=== PATIENT | male | born 1975 | race Two or more races ===

== ENCOUNTER 2024-11-09 15:49 | Emergency (ER) | payer OTHER, SELFPAY ==
--- NOTE | ~2024-11-09 | CT_ITS ---
CLINICAL HISTORY: Right-sided pain etiology?? CT abdomen and pelvis without contrast Comparison: None provided Findings: No consolidation or effusion. The unenhanced liver, gallbladder, spleen, adrenal glands and pancreas are unremarkable. Kidneys, ureters and bladder are normal. Normal appendix. No bowel obstruction or free air. Mild diverticulosis. No acute osseous finding. Impression: No acute process. Diverticulosis without evidence of diverticulitis. Normal appendix. This document has been electronically signed by: Flako Aguilar MD on 11/09/2024 22:40:24
[2024-11-09 15:53] VITALS: BP 164/80; PULSE 56; RESP 18; TEMP 36.6; O2SAT 98; BMI 31.3
--- NOTE | 2024-11-09 15:56 | ED.GENADULT ---
HPI - General Adult General Chief complaint: Abdominal Pain Stated complaint: R sided abdominal pain Time Seen by Provider: 11/09/24 20:09 Source: patient Mode of arrival: ambulatory Limitations: no limitations History of Present Illness ED Provider: HPI narrative: Patient complaining of right lower abdominal pain for last 2 weeks went to [facility] 2 weeks ago was told that has a UTI was given antibiotics no history of kidney stone no fever no chills patient does not have any urinary discomfort at this time but having the pain right lower abdominal concerning no relation with food been does get worse on ambulation Related Data Previous Rx's ?Medication ?Instructions ?Recorded dicyclomine 20 mg tablet 20 mg PO TID PRN abdominal pain 11/09/24 #20 tabs Allergies Allergy/AdvReac Type Severity Reaction Status Date / Time No Known Allergies Allergy Verified 11/09/24 15:55 Review of Systems Review of Systems: Yes all other systems are reviewed and are negative [facility] Social History Social History Advance Directives: No Advance Directives Information Provided: No Do you have a plan to hurt others: No Plan Physical Exam ED Vital Signs: Vital Signs - 24 hr 11/09/24 15:53 11/09/24 22:35 Temperature 97.8 F 98.1 F Pulse Rate 56 48 L Respiratory Rate 18 20 Blood Pressure 164/80 H 151/83 H Pulse Oximetry 98 100 Oxygen Delivery Method Room Air Room Air BMI result Body Mass Index 31.3 Appearance: Alert. Oriented X3. No acute distress. Eyes: No pallor or icterus ENT: Pharynx normal. Oral Mucosa moist Neck: Normal inspection. Neck supple. CVS: Normal heart rate and rhythm. Pulses normal. Respiratory: No respiratory distress. Equal air entry bilateral, no wheezing/rales/rhonchi Abdomen: Soft and deep tenderness right lower abdomen no rebound tenderness or guarding. Bowel sounds are present, no mass palpable, no CVA tenderness Skin: Skin warm and dry. Normal skin color. Normal skin turgor. Extremities: No lower extremity edema. No calf tenderness Neuro: Oriented X 3. No motor deficit. No sensory deficit.No cerebellar signs , cranial nerves II-XII intact Course Course Course Narrative: This is an RME performed by Lizeth Ramirez CNP: Additional HPI, ROS, PE not included below will be deferred to primary provider. Patient is a 49-year-old male who presents emergency department for evaluation. He reports that he was seen at [facility] 2 weeks ago given a 10 day antibiotic course for urinary tract infection. Reports that he continues having right lower quadrant abdominal pain without specific genitourinary symptoms which is what originally brought him to their hospital. He states that he did have a CT scan done there was no kidney stones and was told that his appendix is normal. He denies any fevers, chills, nausea, vomiting Plan: Serum labs, urinalysis Medications Administered Discontinued Medications Generic Name Dose Route Start Last Admin Trade Name Freq PRN Reason Stop Dose Admin Dicyclomine HCl 20 mg 11/09/24 22:47 11/09/24 22:59 Dicyclomine Hcl 10 Mg Capsule PO 11/09/24 22:48 20 mg ONCE ONE Administration Medical Decision Making Medical Decision Making [facility] Narrative: Patient with nonspecific right lower abdominal pain CT scan negative for appendicitis labs are stable advised patient take dicyclomine for discomfort Differential Diagnosis Differential Diagnoses: The differential diagnosis associated with the presentation includes Appendicitis/kidney stone/UTI/cystitis /diverticulitis Lab Data [facility] Lab Attestation statement: I reviewed the patient's lab results. 11/09/24 16:36 11/09/24 16:36 Labs: Lab Results 11/09/24 Range/Units 16:36 WBC 5.8 (4.8-10.8) X10*3/uL RBC 4.24 L (4.60-5.80) X10*6/uL Hgb 12.5 L (14.0-18.0) g/dl Hct 37.1 L (42.0-52.0) % MCV 87.5 (80.0-98.0) fL MCH 29.5 (27.0-33.0) pg MCHC 33.7 (31.0-36.0) g/dl RDW 12.7 (11.0-16.0) % Plt Count 164 (160-400) X10*3/uL MPV 10.4 (9.4-12.4) fL Immature Gran % (Auto) 0.2 (0.0-0.4) % Neut % (Auto) 54.5 (45-73) % Lymph % (Auto) 35.8 (20-40) % [place] % (Auto) 7.3 (2-11) % Eos % (Auto) 1.7 (0-4) % Baso % (Auto) 0.5 (0-2) % Lymph # (Auto) 2.1 (1.2-4.9) X10*3/uL [place] # (Auto) 0.4 (0.1-1.2) X10*3/uL Eos # (Auto) 0.1 (0.0-0.4) X10*3/uL Baso # (Auto) 0.0 (0.0-0.2) X10*3/uL Abs Immat Gran (auto) 0.01 (0.00-0.03) X10*3/uL Absolute Neuts (auto) 3.2 (2.0-8.3) x10*3/uL Absolute Nucleated RBC 0.000 (0.0-0.012) X10*3/uL Nucleated RBC % (auto) 0.0 (0.0-0.2) /100WBC Sodium 144 (135-145) mmol/L Potassium 4.1 (3.3-5.1) mmol/L Chloride 112 H (96-108) mmol/L Carbon Dioxide 24 (22-29) mmol/L Anion Gap 12 (12-20) BUN 17 H (9-16) mg/dL Creatinine 0.87 (0.5-1.4) mg/dL Estim Creat Clear Calc 107.9 Estimated GFR > 60 Random Glucose 92 (60-115) mg/dL Calcium 9.9 (8.4-10.2) mg/dL Total Bilirubin 0.4 (0.0-1.0) mg/dL AST 104 H (5-37) U/L ALT 82 H (0-40) U/L Alkaline Phosphatase 58 (39-117) U/L Total Protein 6.7 (6.5-8.0) g/dL Albumin 4.4 (3.5-5.0) g/dL Urine Color Yellow Urine Appearance Clear Urine pH 5.5 (5.0-9.0) Ur Specific [place] 1.025 (1.005-1.025) Urine Protein Negative (Neg-Trace) mg/dL Urine Glucose (UA) Negative (Negative) mg/dL Urine Ketones Trace (Negative) mg/dL Urine Blood Negative (Negative) Urine Nitrite Negative (Negative) Ur Leukocyte Esterase Negative (Negative) Radiology Impression Discussion of test interpretation with radiology: I have reviewed the radiologist's reading. Discharge Plan Discharge Clinical Impression: Diverticulosis Patient Disposition: Home, Self-Care Instructions: Diverticulosis (ED) Additional Instructions: Drink plenty of fluids Have liquids advance as tolerated Dicyclomine for pain Follow with the PCP if not better Your CT scan is negative for acute pathology except diverticulosis without infection Prescriptions: New dicyclomine 20 mg tablet 20 mg PO TID PRN (Reason: abdominal pain) Qty: 20 0RF Stand Alone Forms: Work/School Release Print Language: Azerbaijani
[2024-11-09 16:43] LABS: MANUAL DIFF FLAG NO
[2024-11-09 16:46] LABS: Appearance Urine Clear; Glucose Urine UA Negative (Negative); Hematocrit 37.1 % (42.0-52.0); Hemoglobin 12.5 g/dl (14.0-18.0); Imm Gran Abs Auto 0.01 X10*3/uL (0.00-0.03); Imm Gran Pct Auto 0.2 % (0.0-0.4); Lymphocytes Absolute Auto 2.1 X10*3/uL (1.2-4.9); Mean Corpuscular HGB Conc 33.7 g/dl (31.0-36.0); Mean Corpuscular Hemoglobin 29.5 pg (27.0-33.0); Mean Corpuscular Volume 87.5 fL (80.0-98.0); NRBC Abs Auto 0.000 X10*3/uL (0.0-0.012); NRBC Pct Auto 0.0 /100WBC (0.0-0.2); PH 5.5 (5.0-9.0); Platelet Count 164 X10*3/uL (160-400); Red Blood Count 4.24 X10*6/uL (4.60-5.80); Specific Gravity - Urine 1.025 (1.005-1.025); White Blood Count 5.8 X10*3/uL (4.8-10.8)
[2024-11-09 17:00] LABS: Alanine Aminotransferase 82 U/L (0-40); Albumin Level 4.4 g/dL (3.5-5.0); Alkaline Phosphatase 58 U/L (39-117); Anion Gap 12 (12-20); Aspartate Amino Transferase 104 U/L (5-37); Blood Urea Nitrogen 17 mg/dL (9-16); Calcium 9.9 mg/dL (8.4-10.2); Carbon Dioxide 24 mmol/L (22-29); Chloride 112 mmol/L (96-108); Creatinine Clr Calc Pharmacy 107.9; Estimated Glomerular Filt Rate > 60; Potassium 4.1 mmol/L (3.3-5.1); Sodium 144 mmol/L (135-145); Total Protein 6.7 g/dL (6.5-8.0)
[2024-11-09 22:35] VITALS: BP 151/83; PULSE 48; RESP 20; TEMP 36.7; O2SAT 100
== END 2024-11-09 23:45 | disposition home or self-care (01) ==
PROVIDERS: Nurse Practitioner Family; Emergency Provider Internal Medicine
DX: K57.30 Diverticulosis of large intestine without perforation or abscess without bleeding (principal); R10.31 Right lower quadrant pain
CPT/HCPCS: 36415; 74176; 80053; 81003; 85025; 99283; 99284

== ENCOUNTER → 2024-11-09 20:59 | Outpatient (BNV) | payer MEDICAID, SELFPAY | PROVIDERS: Emergency Provider Internal Medicine; Visit Provider Radiology Vascular & Interventional Radiology | DX: K57.30 Diverticulosis of large intestine without perforation or abscess without bleeding (principal) | CPT/HCPCS: 74176 ==

== ENCOUNTER 2024-11-26 12:03 | Outpatient (REF) | payer OTHER, SELFPAY ==
--- NOTE | ~2024-11-26 | XR_ITS ---
EXAMINATION: XR LUMBOSACRAL SPINE CLINICAL INFORMATION: pain COMPARISON: Correlated to CT abdomen pelvis dated November 09, 2024. TECHNIQUE: AP and lateral views FINDINGS: Anterior marginal osteophyte formation throughout the lower thoracic spine L4-5 and 7 levels. No acute cortical disruption or gross malalignment. Facet joint hypertrophy at L5-S1. No lytic or blastic lesions. Calcification versus barium opacity in the lower pelvis. XR/XR lumbar spine 2-3V IMPRESSION: Multilevel thoracolumbar spondylosis pronounced at L4-5 and L5-S1. Electronically signed by: Ronald Cid MD 11/26/2024 12:42 PM EDT
== END 2024-11-26 12:04 | disposition home or self-care (01) ==
LOC: HO.HHCX 12:03
PROVIDERS: PCP Internal Medicine; Visit Provider Internal Medicine
DX: M54.50 Low back pain, unspecified (principal)
CPT/HCPCS: 72100

== ENCOUNTER → 2024-11-26 12:17 | Outpatient (BNV) | payer OTHER, SELFPAY | PROVIDERS: PCP Internal Medicine; Visit Provider Radiology Diagnostic Radiology | DX: M47.817 Spondylosis without myelopathy or radiculopathy, lumbosacral region (principal) | CPT/HCPCS: 72100 ==

== ENCOUNTER 2024-12-24 08:54 | Outpatient (REF) | payer MEDICAID, SELFPAY ==
--- OUTSIDE RECORDS SUMMARY | 2024-12-24 09:44 | XMS_ITS | Encounter Summary ---
Author Organization [employer] Address [address] [place] [address] Care Team Providers Care Senior Bioinformatics Scientist Name Role Phone Unavailable Primary Care Provider Unavailabl e Encounter Details Date Type Department Care Team (Late st Contact Info) Description 11/27/2024 Orders Only [facility] [address] [place] [phone] Christina Jackson MD [address] [place] [phone] Social History Tobacco Use Types Packs/Day Years Used Date Smoking Tobacco: Never Assessed Sex and Gender Information Value Date Recorded Sex Assigned at Male 11/23/2024 3:57 PM EDT Legal Sex Male 1:25 PM EDT Gender Identity Male 11/23/2024 3:57 PM EDT Sexual Orientation Straight 11/23/2024 3: 57 PM EDT documented as of this encounter Plan of Treatment Upcoming Encounters Date Type Department Care Team (Late st Contact Info) Description 12/31/2024 2:30 PM EDT Office Visit [facility] [address] [place] [phone] Roddy Cornejo MD [address] [place] [phone] 01/18/2025 10:15 AM EDT Office Visit [facility] [address] [place] [phone] Christina Jackson MD [address] [place] [phone] documented as of this encounter Visit Diagnoses Not on filedocumented in this encounter
--- OUTSIDE RECORDS SUMMARY | 2024-12-24 09:44 | XMS_ITS | Clinical Summary ---
Author Organization [facility] Address [address] [place] [address] Phone Care Team Providers Care Family Resource Management Specialist Name Role Phone Christina Jackson MD Primary Care Provide r Allergies No known active allergies Medications methocarbamoL (ROBAXIN) 500 mg tablet Take 2 tablets (1,000 mg total) by mouth 2 (two) times a day if needed for muscle spasms for up to 14 days. 28 tablet 5 Active Lactobacillus acidophilus 100 mg (1 billion cell) capsule Take 1 capsule by mouth 2 (two) times a day. 60 each 5 11/28/19 25 Encounters Date Type Department Care Team Description 11/27/2024 10:03 AM EDT - 11/27/2024 11:59 PM EDT Hospital Encounter [facility] Ultrasound [address] [place] [phone] Right inguinal hernia Discharge Disposition: Home or Self Care 11/19/2024 10:11 AM EDT - 11/19/2024 1:09 PM EDT Emergency [facility] Emergency [address] [place] [phone] Milagros Douglas MD Strain of right groin (Primary Dx) Discharge Disposition: Home or Self Care 10/28/2024 8:10 PM EDT - 10/29/2024 12:05 AM EDT Emergency [facility] Emergency [address] [place] [phone] Rusty Smalls MD Transaminitis (Primary Dx); Right lower quadrant abdominal pain; Cystitis Discharge Disposition: Home or Self Care from Last 3 Months Social History Tobacco Use Types Packs/Day Years Used Date Smoking Tobacco: Never Smokeless Tobacco: Never Tobacco Cessation:Counseling Given: Not Answered Alcohol Use Standard Drinks/Week Comments Yes 2 (1 standard drink = 0.6 oz pur e alcohol) Sex and Gender Information Value Date Recorded Sex Assigned at Male 11/25/2024 9:11 AM EDT Legal Sex Male 5:42 PM EDT Gender Identity Male 11/25/2024 9:11 AM EDT Sexual Orientation Straight 11/25/2024 9: 11 AM EDT Obstetrics History Last Filed Vital Signs Vital Sign Reading Time Taken Comments Blood Pressure 120/83 11/19/2024 10:10 AM EDT Pulse 64 10/28/2024 5:47 PM EDT Temperature 36.6 C (97.8 F) 11/19/2024 10:10 AM EDT Respiratory Rate 18 11/19/2024 10:10 AM EDT Oxygen Saturation 100% 11/19/2024 10:10 AM EDT Inhaled Oxygen Concentration - - Weight 90.7 kg (200 lb) 11/19/2024 10:05 AM EDT Height 173.7 cm (5' 8.4 ) 11/19/2024 10:05 AM ED T Body Mass Index 30.06 11/19/2024 10:05 AM EDT Plan of Treatment Health Maintenance Due Date Last Done Comments DTaP,Tdap,and Td Vaccines (1 - Tdap) 01/21/1992 Hepatitis B Vaccines (1 of 3 - 19+ 3-dose series) 01/21/1992 Pneumococcal Vaccine: 50+ Ye ars (1 of 1 - PCV) 2023 Zoster Vaccines (1 of 2) 2023 Depression Screening 04/14/2024 Cholesterol Screening (Lipid Panel) 10/29/2024 Colorectal Cancer Screening: Colonoscopy 10/29/2024 HIV Screening 10/29/2024 Hepatitis C Screening 10/29/2024 Social Influencers of Health Screening 10/29/2024 COVID-19 Vaccine ( - 2023-2 5 season) 2024 Influenza Vaccine (#1) 2024 HIB Vaccines Aged Out No longer eligi ble based on patient's age to complete this topic HPV Vaccines Aged Out No longer eligi ble based on patient's age to complete this topic Hepatitis A Vaccines Aged Out No long er eligible based on patient's age to complete this topic IPV Vaccines Aged Out No longer eligi ble based on patient's age to complete this topic MMR Vaccines Aged Out No longer eligi ble based on patient's age to complete this topic Meningococcal ACWY Vaccine Aged Out N o longer eligible based on patient's age to complete this topic Meningococcal B Vaccine Aged Out No l onger eligible based on patient's age to complete this topic RSV Immunization Patients Un guerrero 20 months Aged Out No longer eligible b ased on patient's age to complete this topic Varicella Vaccines Aged Out No longer eligible based on patient's age to complete this topic Procedures Procedure Name Priority Date/Time Associated Diagnosis Comments US PELVIS NON OB COMPLETE Routine 11/27/2024 10:44 AM EDT Right inguinal hernia US SCROTUM AND CONTENTS STAT 11/19/2024 11:39 AM EDT URINALYSIS WITH REFLEX MICROSCOPIC STAT 11/19/2024 10:57 AM EDT URINALYSIS WITH REFLEX MICROSCOPIC STAT 11/19/2024 10:[address] ABDOMEN PELVIS W CONTRAST STAT 10/28/2024 9:42 PM EDT CBC WITH AUTO DIFFERENTIAL STAT 10/28/2024 6:26 PM EDT LIPASE STAT 10/28/2024 6:26 PM EDT COMPREHENSIVE METABOLIC PANEL STAT 10/28/2024 6:26 PM EDT CBC AND DIFFERENTIAL STAT 10/28/2024 6:26 PM EDT from Last 3 Months Results * US Pelvis Non OB Complete (11/27/2024 10:44 AM EDT) Anatomical Region Laterality Modality Body, Pelvis Ultrasound 11/29/2024 10:1 7 AM EDT Impressions 11/29/2024 10:19 AM EDT Impression: 1. No evidence of a right inguinal hernia is seen. 2. Mild right inguinal lymphadenopathy, possibly reactive hyperplasia. Teleshaji FOSTER ([id number]) -------- FINAL REPORT -------- Dictated By: Gabriella Vidal Dictated Date: 11/29/2024 10:17 ET Assigned Physician: Gabriella Vidal Reviewed and Electronically Signed By: Gabriella Vidal Signed Date: 11/29/2024 10:19 ET Workstation ID: [id number] Transcribed By: Self Edit Transcribed Date: 11/29/2024 10:17 ET Narrative 11/29/2024 10:19 AM EDT History: 49-year-old male with right inguinal pain for one month. Question inguinal hernia. Comparison: Scrotal ultrasound 11/19/24, CT abdomen/pelvis 10/28/24 Findings: High resolution real-time imaging of the right inguinal area was performed, without and with Valsalva maneuver. No inguinal hernia is seen. There are several mildly enlarged but morphologically normal right inguinal lymph nodes, also visible on the recent CT, the largest 23 mm long axis. Procedure Note Gabriella Vidal MD - 11/29/2024 History: 49-year-old male with right inguinal pain for one month. Questioninguinal hernia. Comparison: Scrotal ultrasound 11/19/24, CT abdomen/pelvis 10/28/24 Findings: High resolution real-time imaging of the right inguinal area wasperformed, without and with Valsalva maneuver. No inguinal hernia is seen.There are several mildly enlarged but morphologically normal rightinguinal lymph nodes, also visible on the recent CT, the largest 23 mmlong axis. IMPRESSION: Impression: 1. No evidence of a right inguinal hernia is seen. 2. Mild right inguinal lymphadenopathy, possibly reactive hyperplasia. Teleshaji FOSTER ([id number]) -------- FINAL REPORT -------- Dictated By: Gabriella iVdal Dictated Date: 11/29/2024 10:17 ET Assigned Physician: Gabriella Vidal Reviewed and Electronically Signed By: Gabriella Vidal Signed Date: 11/29/2024 10:19 ET Workstation ID: [id number] Transcribed By: Self Edit Transcribed Date: 11/29/2024 10:17 ET us Christina Mendez MD IMG US PROCEDURES Fin al Result * US Scrotum and Contents (11/19/2024 11:39 AM EDT) Anatomical Region Laterality Modality Body Ultrasound 11/19/2024 12:1 4 PM EDT Impressions 11/19/2024 12:16 PM EDT No focal abnormality within the testicle on either side. No etiology for right scrotal pain demonstrated. -------- FINAL REPORT -------- Dictated By: Omar Orozco Dictated Date: 11/19/2024 12:14 ET Assigned Physician: Omar Orozco Reviewed and Electronically Signed By: Omar Orozco Signed Date: 11/19/2024 12:16 ET Workstation ID: [id number] Transcribed By: Self Edit Transcribed Date: 11/19/2024 12:14 ET Narrative 11/19/2024 12:16 PM EDT EXAM: SCROTAL ULTRASOUND HISTORY: Right scrotal pain. Symptoms for one month. TECHNIQUE: Real-time grayscale evaluation of the scrotum. Color mapping of each testicle. Doppler spectral assessment of each testicle. COMPARISON: None FINDINGS: QUALITY: Adequate RIGHT TESTICLE: No focal abnormality of the testicle. Contour is smooth. Echotexture is homogeneous. Size: 4.7 x 2.2 x 3.0 cm Right vascularity: Normal Right echogenicity: Homogeneous Right extratesticular: No suspicious abnormality. The epididymis is not enlarged. There is no peristalsing bowel Right scrotal fluid: No significant scrotal fluid LEFT TESTICLE: No focal abnormality of the testicle. Contour is smooth. Echotexture is homogeneous. Size: 4.7 x 2.2 x 3.1 cm Left vascularity: Normal Left echogenicity: Homogeneous Left extratesticular: No suspicious abnormality. The epididymis is not enlarged. There is no peristalsing bowel Left scrotal fluid: No significant scrotal fluid ADDITIONAL: None Procedure Note Omar Orozco MD - 11/19/2024 EXAM: SCROTAL ULTRASOUND HISTORY: Right scrotal pain. Symptoms for one month. TECHNIQUE: Real-time grayscale evaluation of the scrotum. Color mapping ofeach testicle. Doppler spectral assessment of each testicle. COMPARISON: None FINDINGS: QUALITY: Adequate RIGHT TESTICLE: No focal abnormality of the testicle. Contour is smooth.Echotexture is homogeneous. Size: 4.7 x 2.2 x 3.0 cm Right vascularity: Normal Right echogenicity: Homogeneous Right extratesticular: No suspicious abnormality. The epididymis is notenlarged. There is no peristalsing bowel Right scrotal fluid: No significant scrotal fluid LEFT TESTICLE: No focal abnormality of the testicle. Contour is smooth.Echotexture is homogeneous. Size: 4.7 x 2.2 x 3.1 cm Left vascularity: Normal Left echogenicity: Homogeneous Left extratesticular: No suspicious abnormality. The epididymis is notenlarged. There is no peristalsing bowel Left scrotal fluid: No significant scrotal fluid ADDITIONAL: None IMPRESSION: No focal abnormality within the testicle on either side. No etiology for right scrotal pain demonstrated. -------- FINAL REPORT -------- Dictated By: Omar Orozco Dictated Date: 11/19/2024 12:14 ET Assigned Physician: Omar Orozco Reviewed and Electronically Signed By: Omar Orozco Signed Date: 11/19/2024 12:16 ET Workstation ID: [id number] Transcribed By: Self Edit Transcribed Date: 11/19/2024 12:14 ET us Milagros Douglas MD [facility] US PROCEDURES Final Result * Urinalysis with reflex microscopic (11/19/2024 10:57 AM EDT) Specific [place] Urine 1.021 1.003 - 1.030 LAB URINALYSIS - AUTOMATED METHOD 11/19/2024 11:21 AM EDT [facility] pH, Urine 6.0 5.0 - 8.0 pH LAB URINALYSIS - AUTOMATED METHOD 11/19/2024 11:21 AM EDT [facility] Leukocytes, Urine Negative Negative LAB URINALYSIS - AUTOMATED METHOD 11/19/2024 11:21 AM [facility] Nitrite, Urine Negative Negative LAB URINALYSIS - AUTOMATED METHOD 11/19/2024 11:21 AM [facility] Protein, Urine Negative <=Trace mg/dL LAB URINALYSIS - AUTOMATED METHOD 11/19/2024 11:21 AM [facility] Glucose, Urine Negative Negative mg/dL LAB URINALYSIS - AUTOMATED METHOD 11/19/2024 11:21 AM [facility] Ketones, Urine Negative Negative mg/dL LAB URINALYSIS - AUTOMATED METHOD 11/19/2024 11:21 AM [facility] Urobilinogen, Urine 0.2 0.2 - 1.0 mg/dL LAB URINALYSIS - AUTOMATED METHOD 11/19/2024 11:21 AM [facility] Bilirubin, Urine Negative Negative LAB URINALYSIS - AUTOMATED METHOD 11/19/2024 11:21 AM [facility] Blood, Urine Negative Negative LAB URINALYSIS - AUTOMATED METHOD 11/19/2024 11:21 AM [facility] Urine Urine specimen obtained by clean catch procedure / Unknown Non-blood Collection / Unknown 11/19/2024 10:57 AM EDT 11/19/2024 11:14 AM EDT us Milagros Douglas MD LAB URINE ORDERABLES Final Resul t [facility] [address] [place] [address], * CT Abdomen Pelvis w Contrast (10/28/2024 9:42 PM EDT) Anatomical Region Laterality Modality Body Computed Tomogra phy 10/28/2024 9:58 PM EDT Impressions 10/28/2024 9:58 PM EDT 1. Wall thickening of a decompressed bladder. Correlate for cystitis. Otherwise no acute abdominopelvic findings. Normal appendix. This document has been electronically signed by: Kendall Chirinos MD on 10/28/2024 21:58:22 Narrative 10/28/2024 9:58 PM EDT INDICATION: RLQ abdominal pain, appendicitis suspected (Age >= 14y) CT abdomen and pelvis with contrast Comparison: None provided Findings: The lung bases are clear. Unremarkable gallbladder and solid organs. No urolithiasis. No bowel obstruction, pneumoperitoneum, or pneumatosis. Normal appendix. Wall thickening of a decompressed bladder. Unremarkable bones. Procedure Note Kendall Chirinos - 10/28/2024 INDICATION: RLQ abdominal pain, appendicitis suspected (Age >= 14y) CT abdomen and pelvis with contrast Comparison: None provided Findings: The lung bases are clear. Unremarkable gallbladder and solid organs. No urolithiasis. No bowel obstruction, pneumoperitoneum, or pneumatosis. Normal appendix. Wall thickening of a decompressed bladder. Unremarkable bones. IMPRESSION: 1. Wall thickening of a decompressed bladder. Correlate for cystitis. Otherwise no acute abdominopelvic findings. Normal appendix. This document has been electronically signed by: Kendall Chirinos MD on 10/28/2024 21:58:22 us Rusty Slim SOTO IM CT PROCEDURES Final Result * (ABNORMAL) CBC auto differential (10/28/2024 6:26 PM EDT) WBC 6.8 4.8 - 10.8 K/mcL LAB HEMETOLOGY METHOD 10/28/2024 6:50 PM EDT [facility] RBC 4.40(L) 4.50 - 5.50 M/mcL LAB HEMETOLOGY METHOD 10/28/2024 6:50 PM EDT [facility] Hemoglobin 13.3(L) 13.5 - 17.5 g/dL LAB HEMETOLOGY METHOD 10/28/2024 6:50 PM EDT [facility] Hematocrit 39.2(L) 42.0 - 54.0 % LAB HEMETOLOGY METHOD 10/28/2024 6:50 PM EDT [facility] MCV 88.9 79.0 - 98.0 FL LAB HEMETOLOGY METHOD 10/28/2024 6:50 PM EDT [facility] MCH 30.2 27.0 - 32.0 pcg LAB HEMETOLOGY METHOD 10/28/2024 6:50 PM EDT [facility] MCHC 33.9 32.0 - 37.0 g/dL LAB HEMETOLOGY METHOD 10/28/2024 6:50 PM EDT [facility] RDW 13.2 11.0 - 15.0 % LAB HEMETOLOGY METHOD 10/28/2024 6:50 PM EDT [facility] Platelets 150 130 - 400 K/mcL LAB HEMETOLOGY METHOD 10/28/2024 6:50 PM EDT [facility] MPV 10.2 7.0 - 11.0 FL LAB HEMETOLOGY METHOD 10/28/2024 6:50 PM EDT [facility] NRBC 0.0 <1.0 % LAB HEMETOLOGY METHOD 10/28/2024 6:50 PM EDT [facility] NRBC Absolute 0.00 <0.10 K/mcL LAB HEMETOLOGY METHOD 10/28/2024 6:50 PM EDT [facility] Neutrophils Relative 52.2 % LAB HEMETOLOGY METHOD 10/28/2024 6:50 PM EDT [facility] Lymphocytes Relative 38.5 % LAB HEMETOLOGY METHOD 10/28/2024 6:50 PM EDT [facility] Monocytes Relative 6.1 % LAB HEMETOLOGY METHOD 10/28/2024 6:50 PM EDT [facility] Eosinophils Relative 2.5 % LAB HEMETOLOGY METHOD 10/28/2024 6:50 PM EDT [facility] Basophils Relative 0.6 % LAB HEMETOLOGY METHOD 10/28/2024 6:50 PM EDT [facility] Immature Granulocytes Relative 0.1 % LAB HEMETOLOGY METHOD 10/28/2024 6:50 PM EDT [facility] Neutrophils Absolute 3.53 1.50 - 7.00 K/mcL LAB HEMETOLOGY METHOD 10/28/2024 6:50 PM EDT [facility] Lymphocytes Absolute 2.60 1.00 - 5.00 K/mcL LAB HEMETOLOGY METHOD 10/28/2024 6:50 PM EDT [facility] Monocytes Absolute 0.41 0.20 - 1.00 K/mcL LAB HEMETOLOGY METHOD 10/28/2024 6:50 PM EDT [facility] Eosinophils Absolute 0.17 0.00 - 0.50 K/mcL LAB HEMETOLOGY METHOD 10/28/2024 6:50 PM EDT [facility] Basophils Absolute 0.04 0.00 - 0.20 K/mcL LAB HEMETOLOGY METHOD 10/28/2024 6:50 PM EDT [facility] Immature Granulocytes Absolute 0.01 0.00 - 0.03 K/mcL LAB HEMETOLOGY METHOD 10/28/2024 6:50 PM EDT [facility] Blood Venous blood specimen / Unknown Venipuncture / Unknown 10/28/2024 6:26 PM EDT 10/28/2024 6:42 PM EDT us Rusty Smalls MD LAB BLOOD ORDERABLES Final Resul t [facility] [address] [place] [address], * Lipase (10/28/2024 6:26 PM EDT) Lipase 44 13 - 75 unit/L LAB CHEMISTRY METHOD 10/28/2024 7:29 PM EDT [facility] Blood Venous blood specimen / Unknown Venipuncture / Unknown 10/28/2024 6:26 PM EDT 10/28/2024 6:42 PM EDT Rusty Smalls MD LAB BLOOD ORDERABLES Final Resul t [facility] [address] [place] [address], * (ABNORMAL) Comprehensive metabolic panel (10/28/2024 6:26 PM EDT) Sodium 140 133 - 145 mmol/L LAB CHEMISTRY METHOD 10/28/2024 7:29 PM [facility] Potassium 3.9 3.5 - 5.5 mmol/L LAB CHEMISTRY METHOD 10/28/2024 7:29 PM [facility] Chloride 109 96 - 110 mmol/L LAB CHEMISTRY METHOD 10/28/2024 7:29 PM [facility] CO2 24 21 - 32 mmol/L LAB CHEMISTRY METHOD 10/28/2024 7:29 PM [facility] Anion Gap 7 3 - 11 LAB CHEMISTRY METHOD 10/28/2024 7:29 PM [facility] Glucose 114(H) 70 - 100 mg/dL LAB CHEMISTRY METHOD 10/28/2024 7:29 PM [facility] BUN 17 5 - 25 mg/dL LAB CHEMISTRY METHOD 10/28/2024 7:29 PM [facility] Creatinine 0.98 0.70 - 1.30 mg/dL LAB CHEMISTRY METHOD 10/28/2024 7:29 PM [facility] eGFR 93 >=60 mL/min/1. 73m2 LAB CHEMISTRY METHOD 10/28/2024 7:29 PM [facility] Comment:Calculation based on the Chronic Kidney Disease Epidemiology Collaboration (CKD-EPI) equation refit without adjustment for race. BUN/Creatinine Ratio 17.3 LAB CHEMISTRY METHOD 10/28/2024 7:29 PM T [facility] Calcium 9.1 8.5 - 10.5 mg/dL LAB CHEMISTRY METHOD 10/28/2024 7:29 PM [facility] AST (SGOT) 82(H) 10 - 42 unit/L LAB CHEMISTRY METHOD 10/28/2024 7:29 PM [facility] ALT (SGPT) 70(H) 10 - 60 unit/L LAB CHEMISTRY METHOD 10/28/2024 7:29 PM [facility] Alkaline Phosphatase 63 42 - 121 unit/L LAB CHEMISTRY METHOD 10/28/2024 7:29 PM [facility] Total Protein 6.9 6.0 - 8.0 g/dL LAB CHEMISTRY METHOD 10/28/2024 7:29 PM [facility] Albumin 3.8 3.2 - 5.0 g/dL LAB CHEMISTRY METHOD 10/28/2024 7:29 PM [facility] Total Bilirubin 0.3 0.0 - 1.4 mg/dL LAB CHEMISTRY METHOD 10/28/2024 7:29 PM [facility] Blood Venous blood specimen / Unknown Venipuncture / Unknown 10/28/2024 6:26 PM EDT 10/28/2024 6:42 PM EDT us Rusty Smalls MD LAB BLOOD ORDERABLES Final Resul t [facility] [address] [place] [address], [place] [phone] from Last 3 Months Insurance [place]ICA[place] - [place] Care Teams Family Resource Management Specialist Relationship Specialty Start Date End Date Christina Jackson MD [address] [place] [id number] PCP - General Internal Medicine 11/25/24
--- OUTSIDE RECORDS SUMMARY | 2024-12-24 09:44 | XMS_ITS | Clinical Summary ---
Author Organization [employer] Address [address] [place] [address] Care Team Providers Care Senior Tech Manufacturing Engineering Name Role Phone Unavailable Primary Care Provider Unavailabl e Allergies No known active allergies Medications * This document contains information received from the source organization and may not represent a complete record from that organization. naltrexone (Depade) 50 MG tabletIndicatio ns:Alcohol use disorder Take 1 tablet (50 mg) by mouth Once per day. 30 tablet 2 5 03/10/20 25 Active traMADol (Ultram) 50 MG tabletIndicatio ns:Right inguinal pain Take 1 tablet (50 mg) by mouth every 6 (six) hours if needed for severe pain for up to 5 days. 15 tablet 5 11/29/19 25 Diclofenac Sodium 1 % gelIndications: Groin pain, right Apply 1 Application topically if needed in the morning, at noon, in the evening, and at bedtime (pain) for up to 7 days. 100 g 5 12/18/19 25 Active Problems Problem Noted Date Diagnosed Date Severe depression 12/10/2024 Alcohol use disorder 12/10/2024 Acute right-sided low back pain 11/23/2024 Assessment & Plan (11/23/2024 7:53 PM EDT): I ordered an x-ray patient will be contacted with results Right inguinal pain 11/23/2024 Assessment & Plan (11/23/2024 7:52 PM EDT): Inguinal/femoral hernia? I order a pelvic ultrasound I decided to put a referral to surgery right away I prescribed tramadol 50 mg every 6 hours if it is really needed ED precautions were reviewed with patient Encounters * This document contains information received from the source organization and may not represent a complete record from that organization. Date Type Department Care Team Description 12/10/2024 11:00 AM EDT Office Visit [facility] WALK-IN [address] [address] Roddy Cornejo MD Alcohol use disorder (Primary Dx); Groin pain, right; Bladder wall thickening 12/10/2024 Travel 11/27/2024 Results Follow-Up [facility] [address] [place] [address] Christina Jackson MD XR Lumbar Spine 2-3 Views 11/27/2024 Orders Only [facility] [address] [place] [address] Christina Jackson MD 11/23/2024 6:20 PM EDT Office Visit [facility] [address] [address] Christina Jackson MD Right inguinal pain; Acute right-sided low back pain without sciatica 11/23/2024 Travel from Last 3 Months Social History Tobacco Use Types Packs/Day Years Used Date Smoking Tobacco: Never Passive Smoke Exposure: Never Smokeless Tobacco: Never Tobacco Cessation:Counseling Given: Not Answered Alcohol Answer Date Recorded How often do you have a drink containing alcohol ? 1 12/10/2024 How many drinks containing a lcohol do you have on a typical day when you are drinking? 2 12/10/2024 How often do you have six or more drinks on one occasion? 1 12/10/2024 Depression Answer Date Recorded Patient Health Questionnaire-9 Score 20 12/10/2024 Patient Health Questionnaire-9 Score 20 12/10/2024 Last PHQ-9: Questionnaire Data Not on file 0 12/10/2024 Depression Answer Date Recorded Patient Health Questionnaire-2 Score 6 12/10/2024 Sex and Gender Information Value Date Recorded Sex Assigned at Male 11/23/2024 3:57 PM EDT Legal Sex Male 1:25 PM EDT Gender Identity Male 11/23/2024 3:57 PM EDT Sexual Orientation Straight 11/23/2024 3: 57 PM EDT Last Filed Vital Signs Vital Sign Reading Time Taken Comments Blood Pressure 131/79 12/10/2024 9:48 AM EDT Pulse 69 12/10/2024 9:48 AM EDT Temperature 36.7 C (98.1 F) 12/10/2024 9:48 AM EDT Respiratory Rate 18 12/10/2024 9:48 AM EDT Oxygen Saturation 99% 12/10/2024 9:48 AM EDT Inhaled Oxygen Concentration - - Weight 89.8 kg (198 lb) 12/10/2024 9:48 AM EDT Height 170.2 cm (5' 7 ) 11/23/2024 5:04 PM EDT Body Mass Index 31.01 11/23/2024 5:04 PM EDT Plan of Treatment Upcoming Encounters Date Type Department Care Team (Late st Contact Info) Description 12/31/2024 2:30 PM EDT Office Visit [facility] MEDICINE [address] [place] [address] Roddy Cornejo MD [address] [place] [address] 01/18/2025 10:15 AM EDT Office Visit [facility] MEDICINE [address] [place] [id number] Christina Jackson MD [address] [place] [address] Health Maintenance Due Date Last Done Comments CT Colonography 1973 Colonoscopy 1973 Colorectal Cancer Screening 1973 FIT DNA/Cologuard 1973 FIT 1973 FOBT 1973 HIV Screening 1973 Lipid Panel 1973 SDOH Screening 1973 Sigmoidoscopy 1973 Disability Screening 1973 Family Planning (PISQ) 01/21/1988 Hepatitis C Screening 1991 DTaP/Tdap/Td Vaccines (1 - Tdap) 01/21/1992 Hepatitis B Vaccines (1 of 3 - 19+ 3-dose series) 01/21/1992 Pneumococcal Vaccine: 50+ Years (1 of 1 - PCV) 2023 Zoster Vaccines (1 of 2) 2023 COVID-19 Vaccine (1 - 2023-2 5 season) 2024 Influenza Vaccine (#1) 2024 Depression Monitoring 06/11/2025 12/10/2024 , 12/10/2024 Alcohol/Substance Use Screening 12/10/2025 12/10/2024 Tobacco Screening 12/10/2025 12/10/2024 RSV Patients and Patients Aged 60 years or older (1 - 1-dose 75+ series) 01/21/2048 HIB Vaccines Aged Out No longer eligi [...] patient's age to complete this topic Meningococcal Vaccine Aged Out No rita nat eligible based on patient's age to complete this topic RSV under 20 months Aged Out No longe r eligible based on patient's age to complete this topic Rotavirus Vaccines Aged Out No longer eligible based on patient's age to complete this topic Procedures Procedure Name Priority Date/Time Associated Diagnosis Comments XR LUMBAR SPINE 2-3 VIEWS Routine 11/26/2024 11:42 AM EDT Acute right-sided low back pain without sciatica from Last 3 Months Results * XR Lumbar Spine 2-3 Views (11/26/2024 11:42 AM EDT) Anatomical Region Laterality Modality Spine, L-spine Radiographic Verna ging 11/26/2024 11:4 2 AM EDT Narrative 11/26/2024 12:45 PM EDT [address] [address] XRay Report Signed Patient: Compa Osorio MR#: [id number] : 1975 Acct:[id number] Age/Sex: 49 / M ADM Date: 11/26/24 [facility] Attending Dr: Christina Mendez MD Ordering Physician: Christina Jackson MD Date of Service: 11/26/24 Procedure(s): XR lumbar spine 2-3V Accession Number(s): [id number] cc: Christina Jackson MD EXAMINATION: XR LUMBOSACRAL SPINE CLINICAL INFORMATION: pain COMPARISON: Correlated to CT abdomen pelvis dated November 09, 2024. TECHNIQUE: AP and lateral views FINDINGS: Anterior marginal osteophyte formation throughout the lower thoracic spine L4-5 and 7 levels. No acute cortical disruption or gross malalignment. Facet joint hypertrophy at L5-S1. No lytic or blastic lesions. Calcification versus barium opacity in the lower pelvis. XR/XR lumbar spine 2-3V IMPRESSION: Multilevel thoracolumbar spondylosis pronounced at L4-5 and L5-S1. Electronically signed by: Ronald Cid MD 11/26/2024 12:42 PM EDT RP Dictated By: Ronald Allison MD Signed By: <Electronically signed by Ronald Mcclellan MD in OV> 11/26/24 1242 DD/ 1142 TD/TT: 11/26/24 1200 Electrolysis Engineer: Procedure Note Donotuseinterpreter, Image - 11/26/[address] [address] XRay Report Signed Patient: Compa Osorio [facility]#: [id number] : 1975Acct:[id number] Age/Sex: 49 / MADM Date: 11/26/24 Loc: [facility] Attending Dr: Christina Mendez MD Ordering Physician: Christina Jackson MD Date of Service: 11/26/24 Procedure(s): XR lumbar spine 2-3V Accession Number(s): [id number] cc: Christina Jackson MD EXAMINATION: XR LUMBOSACRAL SPINE CLINICAL INFORMATION: pain COMPARISON: Correlated to CT abdomen pelvis dated November 09, 2024. TECHNIQUE: AP and lateral views FINDINGS: Anterior marginal osteophyte formation throughout the lower thoracic spine L4-5 and 7 levels. No acute cortical disruption or gross malalignment. Facet joint hypertrophy at L5-S1. No lytic or blastic lesions. Calcification versus barium opacity in the lower pelvis. XR/XR lumbar spine 2-3V IMPRESSION: Multilevel thoracolumbar spondylosis pronounced at L4-5 and L5-S1. Electronically signed by: Ronald Cid MD 11/26/2024 12:42 PM EDT RP Dictated By: Ronald Allison MD Signed By: <Electronically signed by Ronald Mcclellan MDin OV> 11/26/24 1242 DD/ 1142 TD/TT: 11/26/24 1200 Electrolysis Engineer: Christina Mendez MD IMG XR PROCEDURES Fin al Result from Last 3 Months Insurance [facility] C3
[2024-12-24 11:17] LABS: MANUAL DIFF FLAG NO
[2024-12-24 11:21] LABS: Hematocrit 43.9 % (42.0-52.0); Hemoglobin 14.9 g/dl (14.0-18.0); Imm Gran Abs Auto 0.01 X10*3/uL (0.00-0.03); Imm Gran Pct Auto 0.2 % (0.0-0.4); Lymphocytes Absolute Auto 2.2 X10*3/uL (1.2-4.9); Mean Corpuscular HGB Conc 33.9 g/dl (31.0-36.0); Mean Corpuscular Hemoglobin 29.4 pg (27.0-33.0); Mean Corpuscular Volume 86.6 fL (80.0-98.0); NRBC Abs Auto 0.000 X10*3/uL (0.0-0.012); NRBC Pct Auto 0.0 /100WBC (0.0-0.2); Platelet Count 178 X10*3/uL (160-400); Red Blood Count 5.07 X10*6/uL (4.60-5.80); White Blood Count 5.5 X10*3/uL (4.8-10.8)
[2024-12-24 12:23] LABS: Alanine Aminotransferase 75 U/L (0-40); Albumin Level 4.6 g/dL (3.5-5.0); Alkaline Phosphatase 65 U/L (39-117); Aspartate Amino Transferase 88 U/L (5-37); Total Protein 7.1 g/dL (6.5-8.0)
== END 2024-12-24 08:55 | disposition home or self-care (01) ==
LOC: HO.HHCL 08:54
PROVIDERS: PCP Internal Medicine; Visit Provider Family Medicine
DX: F10.90 Alcohol use, unspecified, uncomplicated (principal)
CPT/HCPCS: 36415; 80076; 85025

== ENCOUNTER 2025-01-21 09:47 | Outpatient (REF) | payer MEDICAID, SELFPAY ==
--- OUTSIDE RECORDS SUMMARY | 2025-01-18 10:15 | XMS_ITS | Encounter Summary ---
Author Organization [employer] Address [address] [facility] [address] [place] [address] Care Team Providers Care Tie Inspector Name Role Phone Christina Jackson MD Primary Care Provide r Reason for Referral * Consultation (Routine) - Authorized Specialty Diagnoses / Procedures Referred By Mani gonzales Referred To Contact Dermatology / Family Medicine Diagnoses Rash Christina Jackson MD [address] [place] [address] Phone: tel: fax: Marleny Littlejohn MD [address] [place] [address] Phone: tel: fax: Referral ID Status Reason Start Date Expiration Date Visits Requested Visits Authorized [id number] Authorized Consult and Treat 01/18/2025 01/18/2026 1 1 * Consultation (Routine) - Closed Specialty Diagnoses / Procedures Referred By Mani gonzales Referred To Contact Gastroenterology Diagnoses Colon cancer screening Christina Jackson MD [address] [place] [address] Phone: tel: fax: [facility] Gastroenterology [address] [place], [place] Phone: tel: fax: Referral ID Status Reason Start Date Expiration Date V isits Requested Visits Authorized [id number] Closed Specialty Services Required 01/19/2025 01/18/2026 6 6 Encounter Details Date Type Department Care Team (Late st Contact Info) Description 01/18/2025 10:15 AM EDT Office Visit [facility] MEDICINE [address] [place] [address] Christina Jackson MD [address] [place] [address] Severe depression (CMS/HCC) (HCC) (Primary Dx); Dietary counseling; Exercise counseling; Alcohol use disorder; Right inguinal pain; Colon cancer screening; Rash Social History Tobacco Use Types Packs/Day Years Used Date Smoking Tobacco: Never Passive Smoke Exposure: Never Smokeless Tobacco: Never Alcohol Answer Date Recorded How often do [...] PM EDT documented as of this encounter Last Filed Vital Signs Vital Sign Reading Time Taken Comments Blood Pressure 142/82 01/18/2025 10:44 AM EDT Pulse 66 01/18/2025 10:44 AM EDT Temperature 36.4 C (97.5 F) 01/18/2025 10:44 AM EDT Respiratory Rate 14 01/18/2025 10:44 AM EDT Oxygen Saturation - - Inhaled Oxygen Concentration - - Weight 93 kg (205 lb) 01/18/2025 10:44 AM EDT Height 170.2 cm (5' 7 ) 01/18/2025 10:44 AM EDT Body Mass Index 32.11 01/18/2025 10:44 AM EDT documented in this encounter Progress Notes * Christina Mendez MD - 01/18/2025 10:15 AM EDT SUBJECTIVE: Compa Chi is a 49 y.o. year old male who presents for New patient . Acute Concerns: Patient reports he continues to have pain on his inguinal area right side, reports it is challenging for him to be at work and he pushes himself every day, he has upcoming appointment with surgery on01/25/25 he plans to go Patient reports he is taking naltrexone, he tells me it helps but he is still drinking on weekends 12 beers Patient reports he just started with therapist regarding his depression Social History Social History Narrative Not on file Problem List[1] Acute right-sided low back pain Right inguinal pain Severe depression (CMS/HCC) (HCC) Alcohol use disorder Colon cancer screening Rash Family History[2] Review of Systems Constitutional: Negative. HENT: Negative. Respiratory: Negative. Cardiovascular: Negative. Gastrointestinal: Negative for abdominal distention, abdominal pain, anal bleeding, blood in stool,constipation, diarrhea, nausea, rectal pain and vomiting. Right inguinal pain OBJECTIVE: Vitals: 01/18/25 1044 BP: (!) 142/82 BP Location: Left arm Patient Position: Sitting BP Cuff Size: Adult Pulse: 66 Resp: 14 Temp: 97.5 ??F (36.4 ??C) TempSrc: Oral Weight: 205 lb (93 kg) Height: 5' 7 (1.702 m) Physical Exam Constitutional: Appearance: Normal appearance. Cardiovascular: Rate and Rhythm: Normal rate and regular rhythm. Pulmonary: Effort: Pulmonary effort is normal. Breath sounds: Normal breath sounds. Neurological: Mental Status: He is alert. Follow Up: Follow up in about 3 months (around 04/20/2025) for depression . Medications Ordered Prior to Encounter[3] Problem List Items Addressed This Visit Severe depression (CMS/HCC) (HCC) - Primary Patient is now being followed by a therapist, he would like to start with therapy first and then hewill consider medications Counseling was done today Relevant Orders Lipid Panel, Standard Alcohol use disorder Counseling done Continue with naltrexone Patient now has appointment with alcohol use disorder specialist advised not to miss it Relevant Orders Lipid Panel, Standard Right inguinal pain Patient has an appointment on January 25, 2025 with surgeon advised not to miss this appointment Colon cancer screening Relevant Orders Referral to Gastroenterology Rash Will prescribe for him triamcinolone apply twice daily for no more than 2 weeks I also put a referral in to dermatology Relevant Medications triamcinolone (Kenalog) 0.1 % cream Other Relevant Orders Referral to [facility] Derm Skin Other Visit Diagnoses Dietary counseling Exercise counseling [1] Patient Active Problem List Diagnosis Acute right-sided low back pain Right inguinal pain Severe depression (CMS/HCC) (HCC) Alcohol use disorder Colon cancer screening Rash [2] No family history on file. [3] Current Outpatient Medications on File Prior to Visit Medication Sig Dispense Refill allopurinol (Zyloprim) 300 MG tablet Take 1 tablet (300 mg) by mouth Once per day. 90 tablet 0 naltrexone (Depade) 50 MG tablet Take 1 tablet (50 mg) by mouth Once per day. 30 tablet 2 No current facility-administered medications on file prior to visit. documented in this encounter Miscellaneous Notes * Assessment & Plan Note - Christina Mendez MD - 01/18/2025 3:41 PM EDT Associated Problem(s): Right inguinal pain Patient has an appointment on January 25, 2025 with surgeon advised not to miss this appointment * Assessment & Plan Note - Christina Mendez MD - 01/18/2025 3:41 PM EDT Associated Problem(s): Alcohol use disorder Counseling done Continue with naltrexone Patient now has appointment with alcohol use disorder specialist advised not to miss it * Assessment & Plan Note - Christina Mendez MD - 01/18/2025 3:41 PM EDT Associated Problem(s): Rash Will prescribe for him triamcinolone apply twice daily for no more than 2 weeks I also put a referral in to dermatology * Assessment & Plan Note - Christina Mendez MD - 01/18/2025 3:40 PM EDT Associated Problem(s): Severe depression (CMS/HCC) (HCC) Patient is now being followed by a therapist, he would like to start with therapy first and then hewill consider medications Counseling was done today documented in this encounter Plan of Treatment Upcoming Encounters Date Type Department Care Team (Late st Contact Info) Description 01/28/2025 1:30 PM EDT Office Visit [facility] MEDICINE [address] [place] [address] Roddy Cornejo MD [address] [place] [address] 05/17/2025 1:00 PM EST Office Visit [facility] OPTOMETRY [address] [place] [address] Ryanne Abdi, OD [address] [place] [address] Scheduled Orders Name Type Priority Associated Diagnoses Orde r Schedule Lipid Panel, Standard Lab Routine Severe depression (CMS/HCC) (HCC) Alcohol use disorder Expected: 01/18/2025 (Approximate), Expires: 01/18/2026 Scheduled Referrals Name Type Priority Associated Diagnoses Order Schedule Referral to Gastroenterology Outpatient Referral Routine Colon cancer screening Expected: 01/18/2025 (Approximate), Expires: 01/18/2026 Referral to [facility] Derm Skin Outpatient Referral Routine Rash Expected: 01/18/2025 (Approximate), Expires: 01/18/2026 documented as of this encounter Visit Diagnoses Diagnosis Severe depression (CMS/HCC) (HCC)- Primary Depressive disorder, not elsewhere classified Dietary counseling Dietary surveillance and counseling Exercise counseling Alcohol use disorder Right inguinal pain Abdominal pain, right lower quadrant Colon cancer screening Special screening for malignant neoplasms, colon Rash Rash and other nonspecific skin eruption documented in this encounter Additional Health Concerns Assessment Noted Time PHQ-9 Depression Total Score: 20 025 10:37 AM EDT documented as of this encounter Care Teams Tie Inspector Relationship Specialty Start Date End Date Christina Jackson MD [address] [place] [address] PCP - General Internal Medicine 01/18/25 documented as of this encounter
--- OUTSIDE RECORDS SUMMARY | 2025-01-21 10:31 | XMS_ITS | Clinical Summary ---
Author Organization [employer] Address [address] [place] [address] Care Team Providers Care Panelboard Operator Name Role Phone Christina Jackson MD Primary Care Provide r Allergies No known active allergies Medications * This document contains information received from the source organization and may not represent a complete record from that organization. naltrexone (Depade) 50 MG tabletIndicatio ns:Alcohol use disorder Take 1 tablet (50 mg) by mouth Once per day. 30 tablet 2 12/11/19 25 025 Active allopurinol (Zyloprim) 300 MG tabletIndicatio ns:Chronic gout of foot, unspecified cause, unspecified laterality Take 1 tablet (300 mg) by mouth Once per day. 90 tablet 01/04/20 25 025 Active triamcinolone (Kenalog) 0.1 % creamIndication s:Rash Apply topically if needed in the morning and at bedtime (pain and swelling). 30 g 2 01/19/20 25 Active allopurinol (Zyloprim) 300 MG tabletIndicatio ns:Chronic gout of foot, unspecified cause, unspecified laterality Take 1 tablet (300 mg) by mouth Once per day. 30 tablet 1 01/01/20 25 025 Discontinued Active Problems Problem Noted Date Diagnosed Date Colon cancer screening 01/18/2025 Rash 01/18/2025 Assessment & Plan (01/18/2025 3:41 PM EDT): Will prescribe for him triamcinolone apply twice daily for no more than 2 weeks I also put a referral in to dermatology Severe depression (CMS/HCC) 12/10/2024 Assessment & Plan (01/18/2025 3:40 PM EDT): Patient is now being followed by a therapist, he would like to start with therapy first and then he will consider medications Counseling was done today Alcohol use disorder 12/10/2024 Assessment & Plan (01/18/2025 3:41 PM EDT): Counseling done Continue with naltrexone Patient now has appointment with alcohol use disorder specialist advised not to miss it Acute right-sided low back pain 11/23/2024 Assessment & Plan (11/23/2024 7:53 PM EDT): I ordered an x-ray patient will be contacted with results Right inguinal pain 11/23/2024 Assessment & Plan (01/18/2025 3:41 PM EDT): Patient has an appointment on January 25, 2025 with surgeon advised not to miss this appointment Assessment & Plan (11/23/2024 7:52 PM EDT): [...] organization. Date Type Department Care Team Description 01/19/2025 Results Follow-Up [facility] [address] [place] [phone] Roddy Cornejo MD US Abdomen Complete 01/18/2025 10:15 AM EDT Office Visit [facility] [address] [place] [phone] Christina Jackson MD Severe depression (CMS/HCC) (HCC) (Primary Dx); Dietary counseling; Exercise counseling; Alcohol use disorder; Right inguinal pain; Colon cancer screening; Rash 01/18/2025 Travel 01/17/2025 Telephone [facility] [address] [place] [phone] Christina Jackson MD Chart Prep 01/14/2025 Population Health Risk Score [facility] ([facility] Department [address] [place] [phone] Provider, Population Health Generic 01/11/2025 Patient Outreach [address] [address] Christina Jackson MD Pre-visit Planning ((Unable to reach for PVP screening, LVM) to be completed in office ) 12/31/2024 2:30 PM EDT Office Visit [address] [address] Roddy Cornejo MD Alcohol use disorder (Primary Dx); Bladder wall thickening; Chronic gout of foot, unspecified cause, unspecified laterality; Elevated liver enzymes 12/31/[address] [address] Roddy Cornejo MD Chronic gout of foot, unspecified cause, unspecified laterality 12/31/2024 Travel 12/30/2024 Travel 12/27/2024 Results Follow-Up [facility] [address] [place] [address] Roddy Cornejo MD Hepatic Function Panel, CBC auto differential 12/10/2024 11:00 AM EDT Office Visit [facility] [address] [address] Roddy Cornejo MD Alcohol use disorder (Primary Dx); Groin pain, right; Bladder wall thickening 12/10/2024 Travel 11/27/2024 Results Follow-Up [facility] [address] [place] [address] Christina Jackson MD XR Lumbar Spine 2-3 Views 11/27/2024 Orders Only [facility] [address] [place] [address] Christina Jackson MD 11/23/2024 6:20 PM EDT Office Visit [facility] [address] [address] Christina Jackson MD Right inguinal pain; Acute [...] 14 01/18/2025 10:44 AM EDT Oxygen Saturation 99% 12/10/2024 9:48 AM EDT Inhaled Oxygen Concentration - - Weight 93 kg (205 lb) 01/18/2025 10:44 AM EDT Height 170.2 cm (5' 7 ) 01/18/2025 10:44 AM EDT Body Mass Index 32.11 01/18/2025 10:44 AM EDT Plan of Treatment Upcoming Encounters Date Type Department Care Team (Late st Contact Info) Description 01/28/2025 1:30 PM EDT Office Visit [facility] [address] [place] [address] Roddy Cornejo MD [address] [place] [address] 05/17/2025 1:00 PM EST Office Visit [facility] [address] [place] [address] Ryanne Abdi, OD [address] [place] [address] Health Maintenance Due Date Last Done Comments CT Colonography 1975 Colonoscopy 1973 Colorectal Cancer Screening 1973 FIT DNA/Cologuard 1973 FIT 1973 FOBT 1975 HIV Screening 1975 Lipid Panel 1975 SDOH Screening 1975 Sigmoidoscopy 1975 Family Planning (PISQ) 01/21/1988 Hepatitis C [...] , 12/10/2024 Alcohol/Substance Use Screening 12/10/2025 12/10/2024 Disability Screening 12/30/2025 12/30/2024 Tobacco Screening 01/18/2026 01/18/2025 RSV Patients and Patients Aged 60 years [...] Name Priority Date/Time Associated Diagnosis Comments US ABDOMEN COMPLETE Routine 01/14/2025 Elevated liver enzymes POCT ALCOHOL BREATH TEST Routine 12/31/2024 3:04 PM EDT Alcohol use disorder POCT MOISES-14 URINE DRUG SCREEN Routine 12/31/2024 3:03 PM EDT Alcohol use disorder CBC WITH AUTO DIFFERENTIAL Routine 12/24/2024 9:13 AM EDT Alcohol use disorder HEPATIC FUNCTION PANEL Routine 12/24/2024 9:13 AM EDT Alcohol use disorder XR LUMBAR SPINE 2-3 VIEWS Routine 11/26/2024 11:42 AM EDT Acute right-sided low back pain without sciatica from Last 3 Months Results * US Abdomen Complete (01/14/2025) Anatomical Region Laterality Modality Abdomen Ultrasound us Roddy Cornejo MD IMG US PROCEDURES Final Result * POCT alcohol breath test manually resulted (12/31/2024 3:04 PM EDT) Breath Alcohol 0.02 Breath 12/31/2024 3:04 PM EDT us Roddy Cornejo MD POINT OF CARE TEST ENTER/EDIT OR DERABLES Final Result * POCT MOISES-14 Urine Drug Screen (12/31/2024 3:03 PM EDT) THC Negative Negative Cocaine Screen, Urine Negative Negative Opiate Screen, Urine Negative Negative Methamphetamine Screen Urine Negative Negative Amphetamine Screen, Urine Negative Negative Benzodiazepines Screen, Urine Negative Negative Barbiturate Screen, Urine Negative Negative Methadone Screen, Urine Negative Negative Buprenophine Screen, Urine Negative Negative TCA, Urine Negative Negative MDMA Urine Negative Negative ng/mL Oxycodone Screen, Urine Negative Negative Phencyclidine (PCP), Urine Negative Negative Fentanyl, Urine Negative Negative Urine Urine specimen obtained by clean catch procedure / Unknown 12/31/2024 3:03 PM EDT Roddy Cornejo MD POINT OF CARE TEST ENTER/EDIT OR DERABLES Final Result * CBC auto differential (12/24/2024 9:13 AM EDT) White Blood Count 5.5 4.8 - 10.8 X10*3/uL [facility] Red Blood Count 5.07 4.60 - 5.80 X10*6/uL [facility] Hemoglobin 14.9 14.0 - 18.0 g/dl [facility] Hematocrit 43.9 42.0 - 52.0 % [facility] Mean Corpuscular Volume 86.6 80.0 - 98.0 fL [facility] Mean Corpuscular Hemoglobin 29.4 27.0 - 33.0 pg [facility] Mean Corpuscular HGB Conc 33.9 31.0 - 36.0 g/dl [facility] Red Cell Distribution Width 12.8 11.0 - 16.0 % [facility] Platelet Count 178 160 - 400 X10*3/uL [facility] Mean Platelet Volume 10.7 9.4 - 12.4 fL [facility] Neutrophils Percent Auto 48.7 45 - 73 % [facility] Imm Gran Pct Auto 0.2 0.0 - 0.4 % [facility] Lymphocytes Percent Auto 39.8 20 - 40 % [facility] Monocytes Percent Auto 7.9 2 - 11 % [facility] Eosinophils Percent Auto 2.8 0 - 4 % [facility] Basophils Percent Auto 0.6 0 - 2 % [facility] NRBC Pct Auto 0.0 0.0 - 0.2 /100WBC [facility] Neutrophils Absolute Auto 2.7 2.0 - 8.3 x10*3/uL [facility] Imm Gran Abs Auto 0.01 0.00 - 0.03 X10*3/uL [facility] Lymphocytes Absolute Auto 2.2 1.2 - 4.9 X10*3/uL [facility] Monocytes Absolute Auto 0.4 0.1 - 1.2 X10*3/uL [facility] Eosinophils Absolute Auto 0.2 0.0 - 0.4 X10*3/uL [facility] Basophils Absolute Auto 0.0 0.0 - 0.2 X10*3/uL [facility] NRBC Abs Auto 0.000 0.0 - 0.012 X10*3/uL [facility] Blood Venous blood specimen / Unknown 12/24/2024 9:13 AM EDT 12/24/2024 11:11 AM EDT Roddy Cornejo MD LAB BLOOD ORDERABLES Final Resul t Performing Organization Address [facility]/ZIP Co de Phone Number [facility] [address] [place] [phone] * (ABNORMAL) Hepatic Function Panel (12/24/2024 9:13 AM EDT) Bilirubin, Total 0.5 0.0 - 1.0 mg/dL [facility] Bilirubin, Direct 0.1 0.0 - 0.5 mg/dL [facility] Aspartate Amino Transferase 88(H) 5 - 37 U/L [facility] Alanine Aminotransferase 75(H) 0 - 40 U/L [facility] Total Protein 7.1 6.5 - 8.0 g/dL [facility] Albumin Level 4.6 3.5 - 5.0 g/dL [facility] Alkaline Phosphatase 65 39 - 117 U/L [facility] Blood Venous blood specimen / Unknown 12/24/2024 9:13 AM EDT 12/24/2024 11:24 AM EDT us Roddy Cornejo MD LAB BLOOD ORDERABLES Final Resul t Performing Organization Address [facility]/ZIP Co de Phone Number [facility] [address] [place] [phone] * XR Lumbar Spine 2-3 Views (11/26/2024 11:42 AM EDT) Anatomical Region Laterality Modality Spine, L-spine Radiographic Verna ging 11/26/2024 11:4 2 AM EDT Narrative 11/26/2024 12:45 PM EDT [address] [address] XRay Report Signed Patient: Compa Osorio MR#: [id number] : 1975 Acct:[id number] Age/Sex: 49 / M ADM Date: 11/26/24 Loc: HO.HHCX Attending Dr: Christina Mendez MD Ordering Physician: Christina Jackson MD Date of Service: 11/26/24 Procedure(s): XR lumbar spine 2-3V Accession Number(s): [id number] cc: Christina Jackson MD EXAMINATION: XR LUMBOSACRAL [...] Ronald Cid MD 11/26/2024 12:42 PM EDT Dictated By: Ronald Allison MD Signed By: <Electronically signed by Ronald Mcclellan MD in OV> 11/26/24 1242 DD/ 1142 TD/TT: 11/26/24 1200 Joint Sealer: Procedure Note Donotuseinterpreter, Image - 11/26/[address] [address] XRay Report Signed Patient: Compa Osorio AMR#: [id number] : 1975Acct:[id number] Age/Sex: 49 / MADM Date: 11/26/24 Loc: HO.HHCX Attending Dr: Christina Mendez MD Ordering Physician: Christina Jackson MD Date of Service: 11/26/24 Procedure(s): XR lumbar spine 2-3V Accession Number(s): [id number] cc: Christina Jackson MD EXAMINATION: XR LUMBOSACRAL [...] 11/26/24 1242 DD/ 1142 TD/TT: 11/26/24 1200 Joint Sealer: Christina Mendez MD IMG XR PROCEDURES Fin al Result from Last 3 Months Insurance [facility]3 Care Teams Panelboard Operator Relationship Specialty Start Date End Date Christina Jackson MD [address] [place] [phone] PCP - General Internal Medicine 01/18/25
--- OUTSIDE RECORDS SUMMARY | 2025-01-21 10:31 | XMS_ITS | Clinical Summary ---
Author Organization [facility] Address [address] [place] [address] Phone Care Team Providers Care Ink Blender Name Role Phone Christina Jackson MD Primary Care Provide r Allergies No known active allergies Medications methocarbamoL (ROBAXIN) 500 mg tablet Take 2 tablets (1,000 mg total) by mouth 2 (two) times a day if needed for muscle spasms for up to 14 days. 28 tablet 11/19/2024 Active Encounters Date Type Department Care Team Description 01/14/2025 7:15 AM EDT - 01/14/2025 11:59 PM EDT Hospital Encounter [facility] Ultrasound [address] [place] [phone] Elevated liver enzymes Discharge Disposition: Home or Self Care 11/27/2024 10:03 AM EDT - 11/27/2024 11:59 PM EDT Hospital Encounter [facility] Ultrasound [address] [place] [address] Right inguinal hernia Discharge Disposition: Home or Self Care 11/19/2024 10:11 AM EDT - 11/19/2024 1:09 PM EDT Emergency [facility] Emergency [address] [place] [phone] Milagros Douglas MD Strain of right groin (Primary Dx) Discharge Disposition: Home or Self Care 10/28/2024 8:10 PM EDT - 10/29/2024 12:05 AM EDT Emergency [facility] Emergency [address] [place] [address] Rusty Smalls MD Transaminitis (Primary Dx); Right [...] Health Maintenance Due Date Last Done Comments Colorectal Cancer Screening: Colonoscopy 1973 DTaP,Tdap,and Td Vaccines (1 - Tdap) 01/21/1992 Hepatitis A Vaccines (1 of 2 - Risk 2-dose series) 01/21/1992 Hepatitis B Vaccines (1 of 3 - 19+ 3-dose series) 01/21/1992 Pneumococcal Vaccine: 50+ Ye ars (1 of 1 - PCV) 2023 Zoster Vaccines (1 of 2) 2023 Depression Screening 04/14/2024 Cholesterol Screening (Lipid Panel) 10/29/2024 HIV Screening 10/29/2024 Hepatitis C Screening 10/29/2024 Social Influencers of Health Screening 10/29/2024 COVID-19 Vaccine (1 - 2023-2 5 season) 2024 Influenza Vaccine (#1) 2024 RSV Immunization Adult Patie nts (1 - 1-dose 75+ series) 01/21/2048 HIB [...] Priority Date/Time Associated Diagnosis Comments US ABDOMEN LIMITED Routine 01/14/2025 7: 36 AM EDT Elevated liver enzymes US PELVIS NON OB COMPLETE Routine 11/27/2024 [...] Last 3 Months Results * US Abdomen Limited (01/14/2025 7:36 AM EDT) Anatomical Region Laterality Modality Body Ultrasound 01/14/2025 9:31 AM EDT Impressions 01/14/2025 9:34 AM EDT No focal liver lesion. No cholelithiasis or biliary dilation No ascites demonstrated in the right upper quadrant -------- FINAL REPORT -------- Dictated By: Omar Orozco Dictated Date: 01/14/2025 09:31 ET Assigned Physician: Omar Orozco Reviewed and Electronically Signed By: Omar Orozco Signed Date: 01/14/2025 09:34 ET Workstation ID: [id number] Transcribed By: Self Edit Transcribed Date: 01/14/2025 09:31 ET Narrative 01/14/2025 9:34 AM EDT EXAMINATION: ABDOMEN ULTRASOUND, LIMITED CLINICAL INFORMATION: Elevated liver enzymes COMPARISON: None. TECHNIQUE: Ultrasound of the right upper quadrant FINDINGS: QUALITY: Acoustical access and bowel obscures some of the anatomy. The study is mildly to moderately limited. LI - RADS visualization score = Visualization B: Moderate limitations HERRERA for visualization scoring: A - Minimal limitations-unlikely to meaningfully affect sensitivity B - Moderate limitations-limitations may obscure small masses C - Severe limitations-limitations significantly lowers sensitivity for focal liver lesions PANCREAS: Portions of the pancreas are obscured. The pancreatic neck and proximal body are visualized without a definite abnormality. ABDOMINAL AORTA/IVC: Portions of the IVC visualized without a definite abnormality. LIVER: The right lobe of the liver measures 16.2 cm. The liver contour appears smooth. The portal tracts are visualized. Most of the diaphragm is visualized. No suspicious focal liver lesion. BILIARY: The gallbladder is fluid-filled. No cholelithiasis or pericholecystic fluid. COMMON BILE DUCT: The common duct measures 0.3 cm which is within normal limits. GALLBLADDER TENDERNESS: There is no reported tenderness to transducer pressure over the gallbladder. KIDNEYS: Right renal length: 12.4 cm in greatest length Left renal length: Not examined. The upper and lower pole of the right kidney is partially obscured. There is no dilation of the intrarenal collecting system in the right kidney. There is no suspicious focal lesion demonstrated in the right kidney. There is no shadowing calculus demonstrated in the right kidney. FLUID: No intraperitoneal fluid demonstrated in the upper abdomen Procedure Note Omar Orozco MD - 01/14/2025 EXAMINATION: ABDOMEN ULTRASOUND, LIMITED CLINICAL INFORMATION: Elevated liver enzymes COMPARISON: None. TECHNIQUE: Ultrasound of the right upper quadrant FINDINGS: QUALITY: Acoustical access and bowel obscures some of the anatomy. Thestudy is mildly to moderately limited. LI - RADS visualization score = Visualization B: Moderate limitations HERRERA for visualization scoring: A - Minimal limitations-unlikely to meaningfully affect sensitivity B - Moderate limitations-limitations may obscure small masses C - Severe limitations-limitations significantly lowers sensitivity forfocal liver lesions PANCREAS: Portions of the pancreas are obscured. The pancreatic neck andproximal body are visualized without a definite abnormality. ABDOMINAL AORTA/IVC: Portions of the IVC visualized without a definiteabnormality. LIVER: The right lobe of the liver measures 16.2 cm. The liver contourappears smooth. The portal tracts are visualized. Most of the diaphragm isvisualized. No suspicious focal liver lesion. BILIARY: The gallbladder is fluid-filled. No cholelithiasis orpericholecystic fluid. COMMON BILE DUCT: The common duct measures 0.3 cm which is within normallimits. GALLBLADDER TENDERNESS: There is no reported tenderness to transducerpressure over the gallbladder. KIDNEYS: Right renal length: 12.4 cm in greatest length Left renal length: Not examined. The upper and lower pole of the right kidney is partially obscured. There is no dilation of the intrarenal collecting system in the rightkidney. There is no suspicious focal lesion demonstrated in the right kidney. There is no shadowing calculus demonstrated in the right kidney. FLUID: No intraperitoneal fluid demonstrated in the upper abdomen IMPRESSION: No focal liver lesion. No cholelithiasis or biliary dilation No ascites demonstrated in the right upper quadrant -------- FINAL REPORT -------- Dictated By: Omar Orozco Dictated Date: 01/14/2025 09:31 ET Assigned Physician: Omar Orozco Reviewed and Electronically Signed By: Omar Orozco Signed Date: 01/14/2025 09:34 ET Workstation ID: [id number] Transcribed By: Self Edit Transcribed Date: 01/14/2025 09:31 ET us Roddy Cornejo MD IMG US PROCEDURES Final Result * US Pelvis Non OB Complete (11/27/2024 10:44 AM EDT) Anatomical Region Laterality Modality Body, Pelvis Ultrasound 11/29/2024 10:1 7 AM EDT Impressions 11/29/2024 10:19 AM EDT Impression: 1. No evidence of a right inguinal hernia is seen. 2. Mild right inguinal lymphadenopathy, [place] ([id number]) -------- FINAL REPORT -------- Dictated By: Gabriella Vidal Dictated Date: 11/29/2024 10:17 ET Assigned Physician: Gabriella Vidal Reviewed and Electronically Signed By: Gabriella Vidal Signed Date: 11/29/2024 10:19 ET Workstation ID: [id number] Transcribed By: Self Edit Transcribed Date: 11/29/2024 [...] Mild right inguinal lymphadenopathy, possibly reactive hyperplasia. [place] ([id number]) -------- FINAL REPORT -------- Dictated By: Gabriella Vidal Dictated Date: 11/29/2024 10:17 ET Assigned Physician: Gabriella Vidal Reviewed and Electronically Signed By: Gabriella Vidal Signed Date: 11/29/2024 10:19 ET Workstation ID: [id number] Transcribed By: Self Edit Transcribed Date: 11/29/2024 [...] Signed Date: 11/19/2024 12:16 ET Workstation ID: [id number] Transcribed By: Self Edit Transcribed Date: 11/19/2024 [...] Signed Date: 11/19/2024 12:16 ET Workstation ID: [id number] Transcribed By: Self Edit Transcribed Date: 11/19/2024 12:14 ET us Milagros Douglas MD IM US PROCEDURES Final Result * Urinalysis with reflex microscopic (11/19/2024 10:57 AM EDT) [facility] Specific [place] Urine 1.021 1.003 - 1.030 LAB URINALYSIS - AUTOMATED METHOD 11/19/2024 11:21 AM [facility] pH, Urine 6.0 5.0 - 8.0 pH LAB URINALYSIS - AUTOMATED METHOD 11/19/2024 11:21 AM [facility] Leukocytes, Urine Negative Negative LAB URINALYSIS - AUTOMATED METHOD 11/19/2024 11:21 AM [facility] Nitrite, Urine Negative Negative LAB URINALYSIS - AUTOMATED METHOD 11/19/2024 11:21 AM [facility] Protein, Urine Negative <=Trace mg/dL LAB URINALYSIS - AUTOMATED METHOD 11/19/2024 11:21 AM [facility] Glucose, Urine Negative Negative mg/dL LAB URINALYSIS - AUTOMATED METHOD 11/19/2024 11:21 AM [facility] Ketones, Urine Negative Negative mg/dL LAB URINALYSIS - AUTOMATED METHOD 11/19/2024 11:21 AM [facility] Urobilinogen, Urine 0.2 0.2 - 1.0 mg/dL LAB URINALYSIS - AUTOMATED METHOD 11/19/2024 11:21 AM [facility] Bilirubin, Urine Negative Negative LAB URINALYSIS - AUTOMATED METHOD 11/19/2024 11:21 AM [facility] Blood, Urine Negative Negative LAB URINALYSIS - AUTOMATED METHOD 11/19/2024 11:21 AM [facility] Urine Urine specimen obtained by clean catch procedure / Unknown Non-blood Collection / Unknown 11/19/2024 10:57 AM EDT 11/19/2024 11:14 AM EDT us Milagros Douglas MD LAB URINE ORDERABLES Final Resul t [facility] [address] [place] [address], [place] [phone] * CT Abdomen Pelvis w Contrast (10/28/2024 [...] Chirinos MD on 10/28/2024 21:58:22 us Rusty Smalls MD IMDeb CT PROCEDURES Final Result * (ABNORMAL) CBC auto differential (10/28/2024 6:26 PM EDT) WBC 6.8 4.8 - 10.8 K/[facility] LAB HEMETOLOGY METHOD 10/28/2024 6:50 PM EDT [facility] RBC 4.40(L) 4.50 - 5.50 M/mcL LAB HEMETOLOGY METHOD 10/28/2024 6:50 PM EDT [facility] Hemoglobin 13.3(L) 13.5 - 17.5 g/dL LAB HEMETOLOGY METHOD 10/28/2024 6:50 PM EDT [facility] Hematocrit 39.2(L) 42.0 - 54.0 % LAB HEMETOLOGY METHOD 10/28/2024 6:50 PM EDT [facility] MCV 88.9 79.0 - 98.0 FL LAB HEMETOLOGY METHOD 10/28/2024 6:50 PM EDT [facility] MCH 30.2 27.0 - 32.0 pcg LAB HEMETOLOGY METHOD 10/28/2024 6:50 PM EDT [facility] MCHC 33.9 32.0 - 37.0 g/dL LAB HEMETOLOGY METHOD 10/28/2024 6:50 PM EDT [facility] RDW 13.2 11.0 - 15.0 % LAB HEMETOLOGY METHOD 10/28/2024 6:50 PM EDT [facility] Platelets 150 130 - 400 K/mcL LAB HEMETOLOGY METHOD 10/28/2024 6:50 PM EDT [facility] MPV 10.2 7.0 - 11.0 FL LAB HEMETOLOGY METHOD 10/28/2024 6:50 PM EDT [facility] NRBC 0.0 <1.0 % LAB HEMETOLOGY METHOD 10/28/2024 6:50 PM EDT [facility] NRBC Absolute 0.00 <0.10 K/mcL LAB HEMETOLOGY METHOD 10/28/2024 6:50 PM EDT [facility] Neutrophils Relative 52.2 % LAB HEMETOLOGY METHOD 10/28/2024 6:50 PM EDT [facility] Lymphocytes Relative 38.5 % LAB HEMETOLOGY METHOD 10/28/2024 6:50 PM EDT [facility] Monocytes Relative 6.1 % LAB HEMETOLOGY METHOD 10/28/2024 6:50 PM EDT [facility] Eosinophils Relative 2.5 % LAB HEMETOLOGY METHOD 10/28/2024 6:50 PM EDT [facility] Basophils Relative 0.6 % LAB HEMETOLOGY METHOD 10/28/2024 6:50 PM EDT [facility] Immature Granulocytes Relative 0.1 % LAB HEMETOLOGY METHOD 10/28/2024 6:50 PM EDT [facility] Neutrophils Absolute 3.53 1.50 - 7.00 K/mcL LAB HEMETOLOGY METHOD 10/28/2024 6:50 PM EDT [facility] Lymphocytes Absolute 2.60 1.00 - 5.00 K/mcL LAB HEMETOLOGY METHOD 10/28/2024 6:50 PM EDT [facility] Monocytes Absolute 0.41 0.20 - 1.00 K/mcL LAB HEMETOLOGY METHOD 10/28/2024 6:50 PM EDT [facility] Eosinophils Absolute 0.17 0.00 - 0.50 K/mcL LAB HEMETOLOGY METHOD 10/28/2024 6:50 PM EDT [facility] Basophils Absolute 0.04 0.00 - 0.20 K/mcL LAB HEMETOLOGY METHOD 10/28/2024 6:50 PM EDT [facility] Immature Granulocytes Absolute 0.01 0.00 - 0.03 K/mcL LAB HEMETOLOGY METHOD 10/28/2024 6:50 PM EDT [facility] Blood Venous blood specimen / Unknown Venipuncture / Unknown 10/28/2024 6:26 PM EDT 10/28/2024 6:42 PM EDT us Rusty Smalls MD LAB BLOOD ORDERABLES Final Resul t [facility] [address] [place] [address], [place] [phone] * Lipase (10/28/2024 6:26 PM EDT) [facility] Lipase 44 13 - 75 unit/L LAB CHEMISTRY METHOD 10/28/2024 7:29 PM EDT [facility] Blood Venous blood specimen / Unknown Venipuncture / Unknown 10/28/2024 6:26 PM EDT 10/28/2024 6:42 PM EDT Rusty Smalls MD LAB BLOOD ORDERABLES Final Resul t Performing Organization Address [facility] Co de Phone Number [facility] [address] [place] [address], [place] [phone] * (ABNORMAL) Comprehensive metabolic panel (10/28/2024 6:26 PM EDT) [facility] Sodium 140 133 - 145 mmol/L LAB CHEMISTRY METHOD 10/28/2024 7:29 PM [facility] Potassium 3.9 3.5 - 5.5 mmol/L LAB CHEMISTRY METHOD 10/28/2024 7:29 PM [facility] Chloride 109 96 - 110 mmol/L LAB CHEMISTRY METHOD 10/28/2024 7:29 PM [facility] CO2 24 21 - 32 mmol/L LAB CHEMISTRY METHOD 10/28/2024 7:29 PM [facility] Anion Gap 7 3 - 11 LAB CHEMISTRY METHOD 10/28/2024 7:29 PM [facility] Glucose 114(H) 70 - 100 mg/dL LAB CHEMISTRY METHOD 10/28/2024 7:29 PM [facility] BUN 17 5 - 25 mg/dL LAB CHEMISTRY METHOD 10/28/2024 7:29 PM [facility] Creatinine 0.98 0.70 - 1.30 mg/dL LAB CHEMISTRY METHOD 10/28/2024 7:29 PM [facility] eGFR 93 >=60 mL/min/1. 73m2 LAB CHEMISTRY METHOD 10/28/2024 7:29 PM [facility] Comment:Calculation based on the Chronic Kidney Disease Epidemiology Collaboration (CKD-EPI) equation refit without adjustment for race. BUN/Creatinine Ratio 17.3 LAB CHEMISTRY METHOD 10/28/2024 7:29 PM [facility] Calcium 9.1 8.5 - 10.5 mg/dL LAB CHEMISTRY METHOD 10/28/2024 7:29 PM [facility] AST (SGOT) 82(H) 10 - 42 unit/L LAB CHEMISTRY METHOD 10/28/2024 7:29 PM [facility] ALT (SGPT) 70(H) 10 - 60 unit/L LAB CHEMISTRY METHOD 10/28/2024 7:29 PM [facility] Alkaline Phosphatase 63 42 - 121 unit/L LAB CHEMISTRY METHOD 10/28/2024 7:29 PM [facility] Total Protein 6.9 6.0 - 8.0 g/dL LAB CHEMISTRY METHOD 10/28/2024 7:29 PM [facility] Albumin 3.8 3.2 - 5.0 g/dL LAB CHEMISTRY METHOD 10/28/2024 7:29 PM [facility] Total Bilirubin 0.3 0.0 - 1.4 mg/dL LAB CHEMISTRY METHOD 10/28/2024 7:29 PM [facility] Blood Venous blood specimen / Unknown Venipuncture / Unknown 10/28/2024 6:26 PM EDT 10/28/2024 6:42 PM EDT us Rusty Smalls MD LAB BLOOD ORDERABLES Final Resul t [facility] [address] [place] [address], [place] [phone] from Last 3 Months Insurance MEDICAID - [place] Care Teams Ink Blender Relationship Specialty Start Date End Date Christina Jackson MD [address] [place] [phone] PCP - General Internal Medicine 11/25/24
--- OUTSIDE RECORDS SUMMARY | 2025-01-21 10:32 | XMS_ITS | Encounter Summary ---
Author Organization [employer] Address [address] [place] [address] Care Team Providers Care Hide Curer Name Role Phone Christina Jackson MD Primary Care Provide r Encounter Details Date Type Department Care Team (Late Contact Info) Description 01/19/2025 Results Follow-Up [facility] [address] [place] [id number] Roddy Cornejo MD [address] [place] [phone] [place] Abdomen Complete Social History Tobacco Use Types Packs/Day Years [...] Description 01/28/2025 1:30 PM EDT Office Visit [facility] MED[facility] [address] [place] [address] Roddy Cornejo MD [address] [place] [address] 05/17/2025 1:00 PM EST Office Visit [facility] OPTOMETRY [address] [place], [place] [phone] Ryanne Abdi, OD [address] [place], [place] [phone] documented as of this encounter Visit Diagnoses Not on filedocumented in this encounter Additional Health Concerns Assessment Noted Time PHQ-9 Depression Total Score: 20 12/10/ 025 10:37 AM EDT documented as of this encounter Care Teams Hide Curer Relationship Specialty Start Date End Date Christina Jackson MD [address] [place], [place] [phone] PCP - General Internal Medicine 01/18/25 documented as of this encounter
--- OUTSIDE RECORDS SUMMARY | 2025-01-21 10:32 | XMS_ITS | Encounter Summary ---
Author Organization [employer] Address [address] [facility] [address] [place] [address] Care Team Providers Care Clip Loading Machine Feeder Name Role Phone Unavailable Primary Care Provider Unavailabl e Reason for Visit * Reason Onset Date Comments Chart Prep 01/17/2025 Encounter Details Date Type Department Care Team (Late st Contact Info) Description 01/17/2025 Telephone [facility] [address] [place] [address] Christina Jackson MD [address] [place] [address] Chart Prep Social History Tobacco Use Types Packs/Day Years [...] PM EDT documented as of this encounter Miscellaneous Notes * Telephone Encounter - Cesia Deutsch [place] - 01/17/2025 11:50 AM EDT Chart Prep Labs: not done Images: done Referrals: [facility] General Surgery-01/25/25 Vaccines due: Covid, Flu, PCV20, Tdap, Hep B, and Zoster Screenings: colonoscopy and HIV Screening, Hepatitis C Screening Overdue care gaps: SDOH and Oral health screening documented in this encounter Plan of Treatment Upcoming Encounters Date Type Department Care Team (Late st Contact Info) Description 01/28/2025 1:30 PM EDT Office Visit [facility] [address] [place] [address] Roddy Cornejo MD [address] [place] [address] 05/17/2025 1:00 PM EST Office Visit [facility] OPTOMETRY [address] [place] [address] Ryanne Abdi, OD [address] [place] [address] documented as of this encounter Visit Diagnoses Not on filedocumented in this encounter Additional Health Concerns Assessment Noted Time PHQ-9 Depression Total Score: 20 12/10/ 025 10:37 AM EDT documented as of this encounter
--- OUTSIDE RECORDS SUMMARY | 2025-01-21 10:32 | XMS_ITS | Encounter Summary ---
Author Organization [email or web address] Address [address] [facility] 7[address] [place] [address] Care Team Providers Care Identity Access Management Architect Name Role Phone Christina Jackson MD Primary Care Provide r Encounter Details Date Type Department Care Team (Late Contact Info) Description 11/27/2024 Orders Only [facility] [address] [place], [place] [phone] Christina Jackson MD [address] [place] [address] Social History Tobacco Use Types Packs/Day Years [...] Description 01/28/2025 1:30 PM EDT Office Visit [facility] MEDICINE [address] [place] [address] Roddy Cornejo MD [address] [place] [address] 05/17/2025 1:00 PM EST Office Visit [facility] OPTOMETRY [address] [place] [address] Ryanne Abdi, OD [address] [place] [address] documented as of this encounter Visit Diagnoses Not on filedocumented in this encounter Care Teams Identity Access Management Architect Relationship Specialty Start Date End Date Christina Jackson MD [address] [place] [address] PCP - General Internal Medicine 01/18/25 documented as of this encounter
--- OUTSIDE RECORDS SUMMARY | 2025-01-21 10:32 | XMS_ITS | Encounter Summary ---
Author Organization [email or web address] Address [address] [place] [address] Care Team Providers Care Sql Server Architect Name Role Phone Christina Jackson MD Primary Care Provide r Encounter Details Date Type Department Care Team (Latest Contact Info) Description 12/27/2024 Results Follow-Up [facility] MED [facility] PEDS [address] [place] [address] Roddy Cornejo MD [address] [place] [address] Hepatic Function Panel, CBC auto differential Social History Tobacco Use Types Packs/Day Years [...] Description 01/28/2025 1:30 PM EDT Office Visit [facility] [address] [place] [address] Roddy Cornejo MD [address] [place] [address] 05/17/2025 1:00 PM EST Office Visit [facility] OPTOMETRY [address] [place], [place] [phone] Ryanne Abdi, OD [address] [place] [address] documented as of this encounter Visit Diagnoses Not on filedocumented in this encounter Additional Health Concerns Assessment Noted Time PHQ-9 Depression Total Score: 20 12/10/ 025 10:37 AM EDT documented as of this encounter Care Teams Sql Server Architect Relationship Specialty Start Date End Date Christina Jackson MD [address] [place] [address] PCP - General Internal Medicine 01/18/25 documented as of this encounter
--- OUTSIDE RECORDS SUMMARY | 2025-01-21 10:32 | XMS_ITS | Encounter Summary ---
Author Organization [employer] Address [address] [place] [address] Care Team Providers Care Bridge Instructor Name Role Phone Christina Jackson MD Primary Care Provide r Encounter Details Date Type Department Care Team (Latest Contact Info) Description 01/18/2025 Travel Social History Tobacco Use Types Packs/Day Years [...] Description 01/28/2025 1:30 PM EDT Office Visit [facility] [address] [place] [address] Roddy Cornejo MD [address] [place], [place] [phone] 05/17/2025 1:00 PM EST Office Visit [facility] OPTOMETRY [address] [place], [place] [phone] Ryanne Abdi, OD [address] [place] [address] documented as of this encounter Visit Diagnoses Not on filedocumented in this encounter Additional Health Concerns Assessment Noted Time PHQ-9 Depression Total Score: 20 025 10:37 AM EDT documented as of this encounter Care Teams Bridge Instructor Relationship Specialty Start Date End Date Christina Jackson MD [address] [place], [place] [phone] PCP - General Internal Medicine 01/18/25 documented as of this encounter
[2025-01-21 12:01] LABS: PSA,Total (Free>4and<10) 1.91 ng/mL (0.00-4.00)
[2025-01-21 12:03] LABS: Alanine Aminotransferase 88 U/L (0-40); Albumin Level 4.9 g/dL (3.5-5.0); Alkaline Phosphatase 70 U/L (39-117); Anion Gap 13 (12-20); Aspartate Amino Transferase 110 U/L (5-37); Blood Urea Nitrogen 16 mg/dL (9-16); Calcium 9.6 mg/dL (8.4-10.2); Carbon Dioxide 27 mmol/L (22-29); Chloride 106 mmol/L (96-108); Cholesterol 173 mg/dL (<200); Estimated Glomerular Filt Rate > 60; HDL Cholesterol 72 mg/dL (>40); Potassium 4.2 mmol/L (3.3-5.1); Sodium 142 mmol/L (135-145); Total Protein 7.4 g/dL (6.5-8.0); Triglycerides 54 mg/dL (<150)
[2025-01-21 12:34] LABS: Uric Acid 8.8 mg/dL (3.4-7.0)
== END 2025-01-21 09:48 | disposition home or self-care (01) ==
LOC: HO.HHCL 09:47
PROVIDERS: Family Medicine; PCP Internal Medicine; Visit Provider Internal Medicine
DX: M1A.0790 Idiopathic chronic gout, unspecified ankle and foot, without tophus (tophi) (principal); N32.89 Other specified disorders of bladder; F32.2 Major depressive disorder, single episode, severe without psychotic features; F10.90 Alcohol use, unspecified, uncomplicated
CPT/HCPCS: 36415; 80048; 80061; 80076; 84153; 84550

== ENCOUNTER 2025-03-04 14:55 | Outpatient (AMB) | payer OTHER, SELFPAY ==
--- NOTE | 2025-03-04 15:06 | A.OFFVIS_ITS ---
Intake Visit Reasons: Bladder wall thickening Intake Note: New patient presents today for initial visit for bladder wall thickening Urology Medication:None Blood Thinner:None Antibiotic Allergies:None Superintendent [employer] Services: Superintendent [employer] Offered & Declined Superintendent [employer] Name: Huan [id number] Information Interpreted: non-clinical & clinical Allergies No Known Allergies Allergy (Verified 03/04/25 15:06) Review of Systems Const All systems reviewed & are unremarkable except as noted in HPI and below Reports no additional complaints Eyes Reports no additional complaints ENT Reports no additional complaints Card Reports no additional complaints Resp Reports no additional complaints GI Reports no additional complaints Reports as per HPI Musc Reports no additional complaints Skin/Breast Reports system reviewed and no additional complaints, except as documented Neuro Reports no additional complaints Psych Reports no additional complaints Endo Reports no additional complaints Alex/Lymph Reports no additional complaints Aller/Immun Reports no additional complaints Physical Exam Const General: healthy appearing, no acute distress and well developed Orientation/consciousness: patient oriented x3 HEENT Head: Yes normocephalic and Yes atraumatic Eyes Conjunctivae: conjunctivae normal Neck Neck: Yes normal visual inspection Chest Chest palpation & inspection: normal inspection of the chest Resp Effort & Inspection: normal respiratory effort Cardio Rate: regular rate GI Inspection: Yes normal to inspection Neuro General: patient oriented x3 Psych Appearance: grossly normal Affect: normal affect Results AMB Urinalysis, Automated UA Leukoctes 0 Govind/uL Last Edit by Tracee Xie on 03/04/25 16:56 UA Nitrite Negative Last Edit by Tracee Xie on 03/04/25 16:56 UA Urobilinogen 0.2 mg/dL Last Edit by Tracee Xie on 03/04/25 16:56 UA Protein 0 mg/dL Last Edit by Tracee Xie on 03/04/25 16:56 UA pH 7.0 Last Edit by Tracee Xie on 03/04/25 16:56 UA Blood 0 Mookie/uL Last Edit by Tracee Xie on 03/04/25 16:56 UA Specific [place] 1.010 Last Edit by Tracee Xie on 03/04/25 16:56 UA Ketone Negative Last Edit by Tracee Xie on 03/04/25 16:56 UA Bilirubin 0 mg/dL Last Edit by Tracee Xie on 03/04/25 16:56 UA Glucose 0 mg/dL Last Edit by Tracee Xie on 03/04/25 16:56 Results Reviewed Results Reviewed: Date of Service: 11/09/24 CLINICAL HISTORY: Right-sided pain etiology?? CT abdomen and pelvis without contrast Comparison: None provided Findings: No consolidation or effusion. The unenhanced liver, gallbladder, spleen, adrenal glands and pancreas are unremarkable. Kidneys, ureters and bladder are normal. Normal appendix. No bowel obstruction or free air. Mild diverticulosis. No acute osseous finding. Impression: No acute process. Assessment & Plan Assessment & Plan (1) Right groin pain: Code(s): R10.31 - Right lower quadrant pain Category: Medical Orders: Orders AMB Urinalysis Automated Today Z13.9 - Encounter for screening, unspecified Coding Diagnoses Right groin pain R10.31
--- OUTSIDE RECORDS SUMMARY | 2025-03-04 15:09 | XMS_ITS | Encounter Summary ---
Author Organization [employer] Address [address] [facility] 7t [place] [address] Care Team Providers Care Starch Cooker Name Role Phone Christina Jackson MD Primary Care Provide r Encounter Details Date Type Department Care Team (Late Contact Info) Description 11/27/2024 Orders Only [facility] PEDS [address] [place] [address] Christina Jackson MD [address] [place] [address] [phone] Social History Tobacco Use Types Packs/Day Years [...] Encounters Date Type Department Care Team (Late Contact Info) Description 04/22/2025 9:45 AM EST Office Visit [address] [address] Christina Jackson MD [address] [place] [address] [phone] 04/29/2025 1:00 PM EST Office Visit [facility] MED[facility]INE [address] [place] [address] [phone] Roddy Cornejo MD [address] [place] [address] [phone] documented as of this encounter Visit Diagnoses Not on filedocumented in this encounter Care Teams Starch Cooker Relationship Specialty Start Date End Date Christina Jackson MD [address] [place] [address] PCP - General Internal Medicine 01/18/25 documented as of this encounter
--- OUTSIDE RECORDS SUMMARY | 2025-03-04 15:09 | XMS_ITS | Encounter Summary ---
Author Organization [employer] Address [address] 7[address] [place] [address] Care Team Providers Care Paint Crew Supervisor Name Role Phone Christina Jackson MD Primary Care Provide r Encounter Details Date Type Department Care Team (Latest Contact Info) Description 12/27/2024 Results Follow-Up [facility] MED & PEDS [address] [place] [address] Roddy Cornejo MD [address] [place] [address] Hepatic Function Panel, CBC auto differential Social [...] Care Team (Late st Contact Info) Description 04/22/2025 9:45 AM EST Office Visit [facility] [address] [place] [phone] Christina Jackson MD [address] [place] [phone] 04/29/2025 1:00 PM EST Office Visit [facility] [address] [place] [address] [phone] Roddy Cornejo MD [address] [place] [phone] documented as of this encounter Visit Diagnoses Not on filedocumented in this encounter Additional Health Concerns Assessment Noted Time PHQ-9 Depression Total Score: 20 12/10/ 025 10:37 AM EDT documented as of this encounter Care Teams Paint Crew Supervisor Relationship Specialty Start Date End Date Christina Jackson MD [address] [place] [phone] PCP - General Internal Medicine 01/18/25 documented as of this encounter
--- OUTSIDE RECORDS SUMMARY | 2025-03-04 15:09 | XMS_ITS | Encounter Summary ---
Author Organization [employer] Address [address] [place] [address] Care Team Providers Care Fisherman Helper Name Role Phone Christina Jackson MD Primary Care Provide r Encounter Details Date Type Department Care Team (Late st Contact Info) Description 01/19/2025 Results Follow-Up [facility] [address] [place] [phone] Roddy Cornejo MD [address] [place] [phone] [place] Abdomen Complete, PSA, Total With Reflex to PSA, Free, Hepatic Function Panel, Additional followed-up results: 4 Social History Tobacco Use Types Packs/Day Years [...] Description 04/22/2025 9:45 AM EST Office Visit [facility] [address] [place] [phone] Christina Jackson MD [address] [place] [phone] 04/29/2025 1:00 PM EST Office Visit [facility] [address] [place] [phone] Roddy Cornejo MD [address] [place] [address] [phone] documented as of this encounter Visit Diagnoses Not on filedocumented in this encounter Additional Health Concerns Assessment Noted Time PHQ-9 Depression Total Score: 20 08/ 025 10:37 AM EDT documented as of this encounter Care Teams Fisherman Helper Relationship Specialty Start Date End Date Christina Jackson MD [address] [place] [address] [phone] PCP - General Internal Medicine 01/18/25 documented as of this encounter
--- OUTSIDE RECORDS SUMMARY | 2025-03-04 15:09 | XMS_ITS | Clinical Summary ---
Author Organization [employer] Address [address] 7[address] [place] [address] Care Team Providers Care Delinquent Account Clerk Name Role Phone Christina Jackson MD Primary Care Provide r Allergies No known active allergies Medications * This document contains information received from the source organization and may not represent a complete record from that organization. allopurinol (Zyloprim) 300 MG tabletIndication s:Chronic gout of foot, unspecified cause, unspecified laterality Take 1 tablet (300 mg) by mouth Once per day. 90 tablet 5 04/03/20 25 Active triamcinolone (Kenalog) 0.1 % creamIndications :Rash Apply topically if needed in the morning and at bedtime (pain and swelling). 30 g 2 5 Active naltrexone (Depade) 50 MG tabletIndication s:Alcohol use disorder Take 1 tablet (50 mg) by mouth Once per day. 30 tablet 2 5 04/28/19 26 Active Active Problems Problem Noted Date Diagnosed Date [...] organization. Date Type Department Care Team Description 02/04/2025 Telephone [facility] MED[facility]INE [address] [place] [phone] Christina Jackson MD benjamin recall 02/03/2025 Telephone [facility] MED[facility]INE [address] [place] [phone] Christina Jackson MD US order 01/28/2025 1:30 PM EDT Office Visit [address] [address] Roddy Cornejo MD Alcohol use disorder (Primary Dx) 01/28/2025 Travel 01/19/2025 Results Follow-Up [facility] [address] [place] [phone] Roddy Cornejo MD US Abdomen Complete, PSA, Total With Reflex to PSA, Free, Hepatic Function Panel, Additional followed-up results: 4 01/18/2025 10:15 AM EDT Office Visit [address] [address] Christina Jackson MD Severe depression (CMS/HCC) (HCC) (Primary Dx); Dietary counseling; Exercise counseling; Alcohol use disorder; Right inguinal pain; Colon cancer screening; Rash 01/18/2025 Travel 01/17/2025 Telephone [facility] MED[facility]INE [address] [place] [phone] Christina Jackson MD Chart Prep 01/14/2025 Population Health Risk Score [facility] (C3) Department [address] [place] [phone] Provider, Population Health Generic 01/11/2025 Patient Outreach [facility] [address] [place] [phone] Christina Jackson MD Pre-visit Planning ((Unable to reach for PVP screening, LVM) to be completed in office ) 12/31/2024 2:30 PM EDT Office Visit [facility] [address] [place] [phone] Roddy Cornejo MD Alcohol use disorder (Primary Dx); Bladder wall thickening; Chronic gout of foot, unspecified cause, unspecified laterality; Elevated liver enzymes 12/31/2024 Refill [facility] [address] [place] [phone] Roddy Cornejo MD Chronic gout of foot, unspecified cause, unspecified laterality 12/31/2024 Travel 12/30/2024 Travel 12/27/2024 Results Follow-Up [facility] MED & PEDS [address] [place] [address] Roddy Cornejo MD Hepatic Function Panel, CBC auto differential 12/10/2024 11:00 AM EDT Office Visit [facility] [address] [place] [phone] Roddy Cornejo MD Alcohol use disorder (Primary Dx); Groin pain, right; Bladder wall thickening 12/10/2024 Travel from Last 3 Months Social History [...] Sign Reading Time Taken Comments Blood Pressure 133/79 01/28/2025 1:21 PM EDT Pulse 66 01/28/2025 1:21 PM EDT Temperature 36.6 C (97.9 F) 01/28/2025 1:21 PM EDT Respiratory Rate 18 01/28/2025 1:21 PM EDT Oxygen Saturation 99% 12/10/2024 9:48 AM EDT Inhaled Oxygen Concentration - - Weight 93 kg (205 lb) 01/18/2025 10:44 AM EDT Height 170.2 cm (5' 7 ) 01/18/2025 10:44 AM EDT Body Mass Index 32.11 01/18/2025 10:44 AM EDT Plan of Treatment Upcoming Encounters Date Type Department Care Team (Late st Contact Info) Description 04/22/2025 9:45 AM EST Office Visit [facility]INE [address] [place] [phone] Christina Jackson MD [address] [place] [phone] 04/29/2025 1:00 PM EST Office Visit [facility] MED[facility]INE [address] [place] [phone] Roddy Cornejo MD [address] [place] [phone] Health Maintenance Due Date Last Done Comments CT Colonography 1973 Colonoscopy 1973 Colorectal Cancer Screening 1973 FIT DNA/Cologuard 1973 FIT 1973 FOBT 1973 HIV Screening 1973 SDOH Screening 1973 Sigmoidoscopy 1973 Family Planning (PISQ) 01/21/1988 Hepatitis C Screening 1991 DTaP/Tdap/Td Vaccines (1 - Tdap) 01/21/1992 Hepatitis B Vaccines (1 of 3 - 19+ 3-dose series) 01/21/1992 Pneumococcal Vaccine: 50+ Years (1 of 1 - PCV) 2023 Zoster Vaccines (1 of 2) 2023 COVID-19 Vaccine ( - 2024-2 6 season) 2024 Influenza Vaccine (#1) 2024 Depression Monitoring 06/11/2025 12/10/2024 , 12/10/2024 Alcohol/Substance Use Screening 12/10/2025 12/10/2024 Disability Screening 12/30/2025 12/30/2024 Tobacco Screening 01/18/2026 01/18/2025 Lipid Panel 01/21/2030 01/21/2025 RSV Patients and Patients Aged 60 years [...] Procedure Name Priority Date/Time Associated Diagnosis Comments LIPID PANEL, STANDARD Routine 01/21/2025 9:54 AM EDT Severe depression (CMS/HCC) (HCC) Alcohol use disorder BASIC METABOLIC PANEL Routine 01/21/2025 9:54 AM EDT Chronic gout of foot, unspecified cause, unspecified laterality URIC ACID Routine 01/21/2025 9:54 AM EDT Chronic gout of foot, unspecified cause, unspecified laterality HEPATIC FUNCTION PANEL Routine 01/21/2025 9:54 AM EDT Alcohol use disorder PSA, TOTAL WITH REFLEX TO PSA, FREE Routine 01/21/2025 9:54 AM EDT Bladder wall thickening US ABDOMEN COMPLETE Routine 01/14/2025 Elevated liver enzymes POCT ALCOHOL BREATH TEST Routine 12/31/2024 3:04 PM EDT Alcohol use disorder POCT MOISES-14 URINE DRUG SCREEN Routine 12/31/2024 3:03 PM EDT Alcohol use disorder CBC WITH AUTO DIFFERENTIAL Routine 12/24/2024 9:13 AM EDT Alcohol use disorder HEPATIC FUNCTION PANEL Routine 12/24/2024 9:13 AM EDT Alcohol use disorder from Last 3 Months Results * PSA, Total With Reflex to PSA, Free (01/21/2025 9:54 AM EDT) PSA,Total (Free>4and<10) 1.91 0.00 - 4.00 ng/mL [facility] Comment:A Free PSA was not p erformed: The percentage of Free PSA can be used to enhance the differentiation of prostate cancer from benign prostatic disease in subjects whose PSA levels are between 4.0 and 10.0 ng/mL. For subjects whose PSA levels are below 4.0 or above 10.0 ng/mL, the risk of prostate cancer is determined on the basis of the PSA alone. Therefore the % Free PSA is recommended only for those subjects whose PSA levels are between 4.0 and 10.0 ng/mL.PSA methodology: Franz Alinity i ChemiluminescentMicroparticle Immunoassay (CMIA) 01/21/2025 9:54 AM EDT 01/21/2025 11:05 AM EDT us Roddy Cornejo MD LAB BLOOD ORDERABLES Final Resul t Performing Organization Address [facility] de Phone Number [facility] [address] [place] [phone] * (ABNORMAL) Uric acid (01/21/2025 9:54 AM EDT) Uric Acid 8.8(H) 3.4 - 7.0 mg/dL [facility] Blood Venous blood specimen / Unknown 01/21/2025 9:54 AM EDT 01/21/2025 11:32 AM EDT us Roddy Cornejo MD LAB BLOOD ORDERABLES Final Resul t Performing Organization Address [facility] de Phone Number [facility] [address] [place] [phone] * (ABNORMAL) Hepatic Function Panel (01/21/2025 9:54 AM EDT) Only the most recent of2 resultswithin the time period is included. Bilirubin, Total 0.4 0.0 - 1.0 mg/dL [facility] Bilirubin, Direct 0.2 0.0 - 0.5 mg/dL [facility] Aspartate Amino Transferase 110(H) 5 - 37 U/L [facility] Alanine Aminotransferase 88(H) 0 - 40 U/L [facility] Total Protein 7.4 6.5 - 8.0 g/dL [facility] Albumin Level 4.9 3.5 - 5.0 g/dL [facility] Alkaline Phosphatase 70 39 - 117 U/L [facility] Blood Venous blood specimen / Unknown 01/21/2025 9:54 AM EDT 01/21/2025 11:32 AM EDT us Roddy Cornejo MD LAB BLOOD ORDERABLES Final Resul t Performing Organization Address City/[facility]/ZIP Co de Phone Number [facility] [address] [place] [address] [phone] * Lipid Panel, Standard (01/21/2025 9:54 AM EDT) Triglycerides 54 <150 mg/dL [facility] Comment:Desirable Triglyceri de: less than 150 mg/dLBorderline High Triglyceride 150-199 mg/dLHigh Triglyceride: 200-499 mg/dLVery High Triglyceride: greater than or equal to 5OO mg/dL Cholesterol 173 <200 mg/dL [facility] Comment:Desirable Cholestero l: less than 200 mg/dLBorderline High Cholesterol: 200-239 mg/dLHigh Cholesterol: greater than 239 mg/dL LDL Cholesterol Calculated 91 <100 mg/dL [facility] Comment:Desirable LDL: less than 100 mg/dLNear Optimal/Above Optimal LDL: 110- 129 mg/dLBorderline High LDL: 130-159 mg/dLHigh LDL: 160-189 mg/dLVery High LDL: greater than or equal to 190 mg/dL HDL Cholesterol 72 >40 mg/dL [facility] Comment:Desirable HDL: great er than 40 mg/dL Note: This HDL assay may give artificially low results in patients with liver disease. Blood Venous blood specimen / Unknown 01/21/2025 9:54 AM EDT 01/21/2025 11:32 AM EDT us Christina Mendez MD LAB BLOOD ORDERABLES Final Result Performing Organization Address City/[facility]/ZIP Co de Phone Number [facility] [address] [place] [address] [phone] * Basic Metabolic Panel (01/21/2025 9:54 AM EDT) Sodium 142 135 - 145 mmol/L [facility] Potassium 4.2 3.3 - 5.1 mmol/L [facility] Chloride 106 96 - 108 mmol/L [facility] Carbon Dioxide 27 22 - 29 mmol/L [facility] Anion Gap 13 12 - 20 [facility] Urea Nitrogen (BUN) 16 9 - 16 mg/dL [facility] Creatinine, Serum 0.81 0.5 - 1.4 mg/dL [facility] Estimated Glomerular Filt Rate >60 [facility] Comment:Chronic Kidney Disea se: Estimated GFR < 60 mL/min/[id number] Kidney Disease: Estimated GFR < 15 mL/min/1.73m2 Glucose 104 60 - 115 mg/dL [facility] Calcium 9.6 8.4 - 10.2 mg/dL [facility] Blood Venous blood specimen / Unknown 01/21/2025 9:54 AM EDT 01/21/2025 11:32 AM EDT us Roddy Cornejo MD LAB BLOOD ORDERABLES Final Resul t Performing Organization Address City/State/[facility] Co de Phone Number [facility] [address] [place] [phone] * US Abdomen Complete (01/14/2025) Anatomical Region [...] Blood Count 5.5 4.8 - 10.8 X10*3/uL [facility] Red Blood Count 5.07 4.60 - 5.80 X10*6/uL [facility] Hemoglobin 14.9 14.0 - 18.0 g/dl [facility] Hematocrit 43.9 42.0 - 52.0 % [facility] Mean Corpuscular Volume 86.6 80.0 - 98.0 fL [facility] Mean Corpuscular Hemoglobin 29.4 27.0 - 33.0 pg [facility] Mean Corpuscular HGB Conc 33.9 31.0 - 36.0 g/dl [facility] Red Cell Distribution Width 12.8 11.0 - 16.0 % [facility] Platelet Count 178 160 - 400 X10*3/uL [facility] Mean Platelet Volume 10.7 9.4 - 12.4 fL [facility] Neutrophils Percent Auto 48.7 45 - 73 % [facility] Imm Gran Pct Auto 0.2 0.0 - 0.4 % [facility] Lymphocytes Percent Auto 39.8 20 - 40 % [facility] Monocytes Percent Auto 7.9 2 - 11 % [facility] Eosinophils Percent Auto 2.8 0 - 4 % [facility] Basophils Percent Auto 0.6 0 - 2 % [facility] NRBC Pct Auto 0.0 0.0 - 0.2 /100WBC [facility] Neutrophils Absolute Auto 2.7 2.0 - 8.3 x10*3/uL [facility] Imm Gran Abs Auto 0.01 0.00 - 0.03 X10*3/uL [facility] Lymphocytes Absolute Auto 2.2 1.2 - 4.9 X10*3/uL [facility] Monocytes Absolute Auto 0.4 0.1 - 1.2 X10*3/uL [facility] Eosinophils Absolute Auto 0.2 0.0 - 0.4 X10*3/uL [facility] Basophils Absolute Auto 0.0 0.0 - 0.2 X10*3/uL [facility] NRBC Abs Auto 0.000 0.0 - 0.012 X10*3/uL [facility] Blood Venous blood specimen / Unknown 12/24/2024 9:13 AM EDT 12/24/2024 11:11 AM EDT us Roddy Cornejo MD LAB BLOOD ORDERABLES Final Resul t [facility] [address] [place] [phone] [phone] from Last 3 Months Insurance [facility] C3 Care Teams Delinquent Account Clerk Relationship Specialty Start Date End Date Christina Jackson MD [address] [place] [phone] PCP - General Internal Medicine 01/18/25
--- OUTSIDE RECORDS SUMMARY | 2025-03-04 15:09 | XMS_ITS | Clinical Summary ---
Author Organization [facility] Address [address] [place] [address] Phone Care Team Providers Care Food Taster Name Role Phone Christina Jackson MD Primary [...] - 01/14/2025 11:59 PM EDT Hospital Encounter [facility] Ultrasound [address] [place] [address] Elevated liver enzymes Discharge Disposition: Home or Self Care from [...] Health Screening 10/29/2024 COVID-19 Vaccine (1 - 2024-2 6 season) 2024 Influenza Vaccine (#1) 2024 RSV [...] 7: 36 AM EDT Elevated liver enzymes from Last 3 Months Results * US [...] Signed Date: 01/14/2025 09:34 ET Workstation ID: [id number] Transcribed By: Self Edit Transcribed Date: 01/14/2025 [...] Signed Date: 01/14/2025 09:34 ET Workstation ID: [id number] Transcribed By: Self Edit Transcribed Date: 01/14/2025 09:31 ET us Roddy Cornejo MD G PROCEDURES Final Result from Last 3 Months Insurance MEDICAID - [place] Care Teams Food Taster Relationship Specialty Start Date End Date Christina Jackson MD [address] [place] [phone] PCP - General Internal Medicine 11/25/24
== END 2025-03-04 15:36 | disposition home or self-care (01) ==
LOC: HO.HUSH 14:56
PROVIDERS: PCP Internal Medicine; Visit Provider Urology
DX: Z13.9 Encounter for screening, unspecified (principal)

== ENCOUNTER → 2025-03-04 14:55 | Outpatient (BNVA) | payer MEDICAID, SELFPAY | PROVIDERS: PCP Internal Medicine; Visit Provider Urology | DX: R10.31 Right lower quadrant pain (principal) | CPT/HCPCS: 81003 ==